=== PATIENT | female | born 1940 | race Hispanic/Latino ===

== ENCOUNTER 2020-11-25 04:52 | Inpatient (IN) | payer MEDICARE ==
[~2020-11-25] VITALS: Ht 152.4 cm; Wt 51.3 kg
[~2020-11-25 04:52] MED LIST: ASA81 MG PO; Z TIROSINT PO; Z.0.B-121000 MCG PO; Z.0.BONIVA150 MG PO; Z.0.DIOVAN160 MG PO; Z.1.VITAMIN D400 UNI PO
[2020-11-25] MEDS ORDERED: SODIUM CHLORIDE 0.9% 500ML 500 ML ONE ×2 (05:28→05:41)
[2020-11-25 05:47] LABS: BASOPHILS # (AUTO) 0.1 (0.0-0.1); BASOPHILS % 0.4 % (0.0-1.0); EOSINOPHILS % 0.2 % (0.0-6.0); HEMATOCRIT 33.9 % (34.2-44.1); HEMOGLOBIN 10.6 g/dL (12.0-16.0); LYMPHOCYTES # (AUTO) 2.2 (1.0-3.2); LYMPHOCYTES % 17.3 % (18.0-39.1); MEAN CORPUSCULAR HEMOGLOBIN 32.6 pg (28-32); MEAN CORPUSCULAR HGB CONC 31.3 g/dL (31-35); MEAN CORPUSCULAR VOLUME 104.3 fL (81-99); MONOCYTES # (AUTO) 0.8 (0.2-0.8); MONOCYTES % 6.6 % (4.4-11.3); NEUTROPHILS # (AUTO) 8.5 (2.1-6.9); NEUTROPHILS % 66.9 % (38.7-80.0); PLATELET COUNT 189 x10e3/uL (140-360); RED BLOOD COUNT 3.25 x10e6/uL (3.6-5.1); RED CELL DISTRIBUTION WIDTH 22.8 % (11.7-14.4)
[2020-11-25] MEDS ORDERED: CEFTRIAXONE 1 GM in SODIUM CHLORIDE 0.9% 50ML 50 ML IV STA (05:47)
[2020-11-25] MEDS ORDERED: DEXAMETHASONE SOD PHOS INJ 4 MG/ML SDV IV ONE (06:00)
[2020-11-25 06:13] LABS: ALBUMIN 2.9 g/dL (3.5-5.0); ALBUMIN/GLOBULIN RATIO 1.1 (0.8-2.0); ANION GAP 17.3 mmol/L (8-16); CALCIUM 7.8 mg/dL (8.4-10.2); CREATININE, SERUM 1.31 mg/dL (0.57-1.11); POTASSIUM 4.3 mmol/L (3.5-5.1)
[2020-11-25] MEDS ORDERED: SODIUM CHLORIDE 0.9% 1000ML 1,000 ML IV STA ×2 (06:26)
[2020-11-25 07:57] LABS: MAGNESIUM 2.1 MG/DL (1.3-2.1); PHOSPHORUS 2.5 MG/DL (2.3-4.7)
[2020-11-25 08:19] LABS: FREE T4 (FREE THYROXINE) 1.17 ng/dL (0.8-1.8); THYROID STIMULATING HORMONE 7.246 uIU/mL (0.350-4.940)
[2020-11-25] MEDS ORDERED: METOPROLOL SUCCINATE 50 MG TAB XL PO ONE (09:00)
[2020-11-25] MEDS ORDERED: PREDNISONE10 MG PO (09:46)
[2020-11-25] MEDS ORDERED: METOPROLOL TART25 MG PO (09:46)
[2020-11-25] MEDS ORDERED: VANCOMYCIN HCL125 MG PO (09:46)
[2020-11-25] MEDS ORDERED: AZITHROMYCIN500 MG PO (09:46)
[2020-11-25] MEDS ORDERED: LEVOTHYROXINE75 MCG PO (09:46)
[2020-11-25] MEDS ORDERED: DILTIAZEM HCL30 MG PO (09:46)
[2020-11-25] MEDS ORDERED: FEROSUL325 MG PO (09:46)
[2020-11-25] MEDS ORDERED: VALACYCLOVIR500 MG PO (09:46)
[2020-11-25] MEDS ORDERED: IMURAN50 MG PO (09:46)
[2020-11-25] MEDS ORDERED: BUSPIRONE HCL5 MG PO (09:46)
[2020-11-25] MEDS: LEVOTHYROXINE SODIUM 88 MCG TAB PO SCH (10:11)
[2020-11-25 10:24] LABS: CLARITY,URINE CLEAR (CLEAR); COLOR,URINE YELLOW (YELLOW); KETONES,URINE NEGATIVE (NEGATIVE); LEUKOCYTE ESTERASE ,URINE NEGATIVE (NEGATIVE); NITRITE,URINE NEGATIVE (NEGATIVE); PROTEIN,URINE DIPSTICK NEGATIVE (NEGATIVE); URINE UROBILINOGEN 0.2 mg/dL (0.2 - 1)
[2020-11-25 10:40] LABS: BACTERIA,URINE FEW /HPF; EPITHELIAL CELLS,URINE FEW /LPF
[2020-11-25 10:55] LABS: INR 0.91; PROTHROMBIN TIME 12.5 seconds (11.9-14.5)
[2020-11-25 10:56] LABS: PARTIAL THROMBOPLASTIN TIME 25.7 seconds (23.8-35.5)
[2020-11-25] MEDS ORDERED: ONDANSETRON HCL INJ 2MG/ML 2ML 2 MG/ML VIAL IV PRN (12:45)
[2020-11-25 14:18] VITALS: BP 140/76
[2020-11-25] MEDS ORDERED: CASIRIVIMAB/IMDEVIMAB 10 ML in SODIUM CHLORIDE 0.9% 100 ML IV ONE (16:00)
[2020-11-25 20:00] VITALS: BP 133/72
[2020-11-25 23:39] VITALS: BP 133/72
[2020-11-26] VITALS (7 sets, daily range): BP systolic 111–137; BP diastolic 63–76
[2020-11-26] MEDS ORDERED: MELATONIN 5 MG TABLET PO PRN (01:15)
[2020-11-26] MEDS ORDERED: ACETAMINOPHEN 325 MG TAB PO PRN (01:15)
[2020-11-26] MEDS ORDERED: ONDANSETRON HCL INJ 2MG/ML 2ML 2 MG/ML VIAL IV PRN (01:15)
[2020-11-26] MEDS ORDERED: DIPHENHYDRAMINE HCL 25 MG CAP PO PRN (01:15)
[2020-11-26] MEDS ORDERED: DEXTROSE 50% SYRINGE 50 ML IV PRN (01:15)
[2020-11-26] MEDS ORDERED: BENZONATATE 100 MG CAP PO PRN (01:15)
[2020-11-26] MEDS ORDERED: ALBUTEROL/IPRATROPIUM 3 ML NEB NEB PRN (01:15)
[2020-11-26] MEDS ORDERED: HYDRALAZINE HCL 20 MG/ML VIAL IV PRN (01:15)
[2020-11-26] MEDS ORDERED: LIDOCAINE 4% PATCH TP PRN (01:15)
[2020-11-26] MEDS ORDERED: DOCUSATE SODIUM 100 MG CAP PO PRN (01:15)
[2020-11-26] MEDS ORDERED: SIMETHICONE 80 MG CHEW PO PRN (01:15)
[2020-11-26] MEDS: PANTOPRAZOLE SOD 40 MG TABEC PO SCH (06:03)
[2020-11-26] MEDS: LEVOTHYROXINE SODIUM 88 MCG TAB PO SCH (06:03)
[2020-11-26 06:24] LABS: BASOPHILS % 0.4 % (0.0-1.0); EOSINOPHILS % 0.1 % (0.0-6.0); HEMATOCRIT 29.1 % (34.2-44.1); LYMPHOCYTES # (AUTO) 0.7 (1.0-3.2); LYMPHOCYTES % 9.2 % (18.0-39.1); MEAN CORPUSCULAR HGB CONC 30.9 g/dL (31-35); MEAN CORPUSCULAR VOLUME 106.6 fL (81-99); MONOCYTES # (AUTO) 0.5 (0.2-0.8); MONOCYTES % 7.5 % (4.4-11.3); NEUTROPHILS # (AUTO) 5.3 (2.1-6.9); NEUTROPHILS % 73.6 % (38.7-80.0); PLATELET COUNT 120 x10e3/uL (140-360); RED BLOOD COUNT 2.73 x10e6/uL (3.6-5.1); RED CELL DISTRIBUTION WIDTH 22.7 % (11.7-14.4)
[2020-11-26 07:03] LABS: ALBUMIN 2.3 g/dL (3.5-5.0); ALBUMIN/GLOBULIN RATIO 1.3 (0.8-2.0); ANION GAP 14.8 mmol/L (8-16); CREATININE, SERUM 0.84 mg/dL (0.57-1.11); POTASSIUM 3.8 mmol/L (3.5-5.1)
[2020-11-26 07:08] LABS: CALCIUM 6.6 mg/dL (8.4-10.2)
[2020-11-26] MEDS: CEFTRIAXONE 1 GM in SODIUM CHLORIDE 0.9% 50ML 50 ML IV SCH (09:00)
[2020-11-26] MEDS: METOPROLOL TARTRATE 25 MG TAB PO SCH (14:45)
[2020-11-26] MEDS: DEXTROSE 5%/0.9% SOD CHL 1,000 ML IV SCH (14:45)
[2020-11-26] MEDS ORDERED: CALCIUM GLUCONATE 10% INJ 9.3 MEQ in SODIUM CHLORIDE 0.9% 100 ML 100 ML IV ONE (16:00)
[2020-11-26] MEDS: BUSPIRONE HCL 5 MG TAB PO SCH (16:55)
[2020-11-26] MEDS: SODIUM BICARBONATE 650 MG TAB PO SCH (16:55)
[2020-11-26] MEDS: FERROUS SULFATE 325 MG TAB PO SCH (16:55)
[2020-11-26] MEDS: ENOXAPARIN SOD INJ 40 MG/0.4 ML SYR SC SCH (16:55)
[2020-11-26] MEDS ORDERED: ENOXAPARIN SOD INJ 40 MG/0.4 ML SYR SC SCH (17:00)
[2020-11-26] MEDS ORDERED: DILTIAZEM HCL 30 MG TAB PO SCH (22:00)
[2020-11-27] VITALS (9 sets, daily range): BP systolic 114–141; BP diastolic 59–82
[2020-11-27] MEDS: METOPROLOL TARTRATE 25 MG TAB PO SCH ×2 (01:57→14:45)
[2020-11-27] MEDS: LEVOTHYROXINE SODIUM 75 MCG TAB PO SCH (05:36)
[2020-11-27] MEDS: LEVOTHYROXINE SODIUM 88 MCG TAB PO SCH (05:38)
[2020-11-27] MEDS: DEXTROSE 5%/0.9% SOD CHL 1,000 ML IV SCH (05:43)
[2020-11-27 06:02] LABS: BASOPHILS % 0.6 % (0.0-1.0); EOSINOPHILS % 0.2 % (0.0-6.0); HEMATOCRIT 28.9 % (34.2-44.1); HEMOGLOBIN 9.1 g/dL (12.0-16.0); LYMPHOCYTES # (AUTO) 0.4 (1.0-3.2); LYMPHOCYTES % 6.9 % (18.0-39.1); MEAN CORPUSCULAR HEMOGLOBIN 32.7 pg (28-32); MEAN CORPUSCULAR HGB CONC 31.5 g/dL (31-35); MONOCYTES # (AUTO) 0.3 (0.2-0.8); MONOCYTES % 6.1 % (4.4-11.3); NEUTROPHILS # (AUTO) 3.9 (2.1-6.9); NEUTROPHILS % 77.9 % (38.7-80.0); PLATELET COUNT 100 x10e3/uL (140-360); RED BLOOD COUNT 2.78 x10e6/uL (3.6-5.1); RED CELL DISTRIBUTION WIDTH 21.9 % (11.7-14.4)
[2020-11-27 06:54] LABS: ANION GAP 11.2 mmol/L (8-16); CALCIUM 7.2 mg/dL (8.4-10.2); CREATININE, SERUM 0.82 mg/dL (0.57-1.11); POTASSIUM 3.2 mmol/L (3.5-5.1)
[2020-11-27] MEDS: PANTOPRAZOLE SOD 40 MG TABEC PO SCH (09:53)
[2020-11-27] MEDS: CEFTRIAXONE 1 GM in SODIUM CHLORIDE 0.9% 50ML 50 ML IV SCH (09:53)
[2020-11-27] MEDS: SODIUM BICARBONATE 650 MG TAB PO SCH ×2 (09:54→16:49)
[2020-11-27] MEDS: AZATHIOPRINE 50 MG TAB PO SCH (09:54)
[2020-11-27] MEDS: ASPIRIN 81 MG ENTERIC COATED PO SCH (09:54)
[2020-11-27] MEDS: VALACYCLOVIR HCL 500 MG TAB PO SCH (09:54)
[2020-11-27] MEDS: PREDNISONE 10 MG TAB PO SCH (09:54)
[2020-11-27] MEDS: BUSPIRONE HCL 5 MG TAB PO SCH ×2 (09:54→16:49)
[2020-11-27] MEDS: FERROUS SULFATE 325 MG TAB PO SCH ×2 (09:54→16:49)
[2020-11-27] MEDS: POTASSIUM CHLORIDE 20 MEQ TAB CR PO PRN (12:45)
[2020-11-27] MEDS ORDERED: KCL 20 MEQ PACKET/ ORAL SOLN PO ONE (12:45)
[2020-11-27] MEDS: ENOXAPARIN SOD INJ 40 MG/0.4 ML SYR SC SCH (16:49)
[2020-11-27] MEDS ORDERED: LOPERAMIDE HCL 2 MG CAP PO ONE (18:30)
[2020-11-28] VITALS (8 sets, daily range): BP systolic 116–145; BP diastolic 62–82
[2020-11-28] MEDS: METOPROLOL TARTRATE 25 MG TAB PO SCH ×2 (02:30→12:51)
[2020-11-28] MEDS: LEVOTHYROXINE SODIUM 75 MCG TAB PO SCH (05:20)
[2020-11-28] MEDS: LEVOTHYROXINE SODIUM 88 MCG TAB PO SCH (05:20)
[2020-11-28] MEDS: AZATHIOPRINE 50 MG TAB PO SCH (09:48)
[2020-11-28] MEDS: PREDNISONE 10 MG TAB PO SCH (09:48)
[2020-11-28] MEDS: BUSPIRONE HCL 5 MG TAB PO SCH ×2 (09:48→16:39)
[2020-11-28] MEDS: VALACYCLOVIR HCL 500 MG TAB PO SCH (09:48)
[2020-11-28] MEDS: PANTOPRAZOLE SOD 40 MG TABEC PO SCH (09:48)
[2020-11-28] MEDS: ASPIRIN 81 MG ENTERIC COATED PO SCH (09:48)
[2020-11-28] MEDS: FERROUS SULFATE 325 MG TAB PO SCH ×2 (09:48→16:39)
[2020-11-28] MEDS: SODIUM BICARBONATE 650 MG TAB PO SCH ×2 (09:48→16:39)
[2020-11-28] MEDS: CEFTRIAXONE 1 GM in SODIUM CHLORIDE 0.9% 50ML 50 ML IV SCH (11:47)
[2020-11-28] MEDS: ENOXAPARIN SOD INJ 40 MG/0.4 ML SYR SC SCH (16:39)
[2020-11-29] VITALS (7 sets, daily range): BP systolic 115–145; BP diastolic 68–88
[2020-11-29] MEDS: METOPROLOL TARTRATE 25 MG TAB PO SCH ×2 (00:48→14:38)
[2020-11-29] MEDS: LEVOTHYROXINE SODIUM 75 MCG TAB PO SCH (05:55)
[2020-11-29] MEDS: LEVOTHYROXINE SODIUM 88 MCG TAB PO SCH (05:55)
[2020-11-29 06:58] LABS: BASOPHILS % 0.7 % (0.0-1.0); HEMATOCRIT 26.3 % (34.2-44.1); HEMOGLOBIN 8.9 g/dL (12.0-16.0); LYMPHOCYTES # (AUTO) 0.6 (1.0-3.2); LYMPHOCYTES % 12.5 % (18.0-39.1); MEAN CORPUSCULAR HEMOGLOBIN 35.2 pg (28-32); MEAN CORPUSCULAR HGB CONC 33.8 g/dL (31-35); MONOCYTES # (AUTO) 0.3 (0.2-0.8); MONOCYTES % 5.9 % (4.4-11.3); NEUTROPHILS # (AUTO) 3.3 (2.1-6.9); NEUTROPHILS % 75.9 % (38.7-80.0); PLATELET COUNT 80 x10e3/uL (140-360); RED BLOOD COUNT 2.53 x10e6/uL (3.6-5.1); RED CELL DISTRIBUTION WIDTH 22.8 % (11.7-14.4)
[2020-11-29 07:23] LABS: ANION GAP 10.4 mmol/L (8-16); CREATININE, SERUM 0.85 mg/dL (0.57-1.11); POTASSIUM 3.4 mmol/L (3.5-5.1)
[2020-11-29] MEDS: AZATHIOPRINE 50 MG TAB PO SCH (09:37)
[2020-11-29] MEDS: FERROUS SULFATE 325 MG TAB PO SCH ×2 (09:37→17:28)
[2020-11-29] MEDS: VALACYCLOVIR HCL 500 MG TAB PO SCH (09:37)
[2020-11-29] MEDS: PREDNISONE 10 MG TAB PO SCH (09:37)
[2020-11-29] MEDS: SODIUM BICARBONATE 650 MG TAB PO SCH ×2 (09:37→17:28)
[2020-11-29] MEDS: ASPIRIN 81 MG ENTERIC COATED PO SCH (09:37)
[2020-11-29] MEDS: BUSPIRONE HCL 5 MG TAB PO SCH ×2 (09:37→17:28)
[2020-11-29] MEDS: CEFTRIAXONE 1 GM in SODIUM CHLORIDE 0.9% 50ML 50 ML IV SCH (09:37)
[2020-11-29] MEDS: PANTOPRAZOLE SOD 40 MG TABEC PO SCH (09:37)
[2020-11-29] MEDS: ENOXAPARIN SOD INJ 40 MG/0.4 ML SYR SC SCH (17:29)
[2020-11-30] VITALS (7 sets, daily range): BP systolic 110–136; BP diastolic 58–68
[2020-11-30] MEDS: METOPROLOL TARTRATE 25 MG TAB PO SCH ×2 (00:22→14:11)
[2020-11-30] MEDS: VANCOMYCIN 250MG/5ML ORAL SOLN PO SCH ×4 (00:22→17:36)
[2020-11-30 05:52] LABS: CHOL/HDL RATIO 3.4 (3.0-3.6)
[2020-11-30] MEDS: LEVOTHYROXINE SODIUM 75 MCG TAB PO SCH (06:05)
[2020-11-30] MEDS: BUSPIRONE HCL 5 MG TAB PO SCH ×2 (08:50→17:36)
[2020-11-30] MEDS: CEFTRIAXONE 1 GM in SODIUM CHLORIDE 0.9% 50ML 50 ML IV SCH (08:50)
[2020-11-30] MEDS: ASPIRIN 81 MG ENTERIC COATED PO SCH (08:50)
[2020-11-30] MEDS: SODIUM BICARBONATE 650 MG TAB PO SCH ×2 (08:50→17:36)
[2020-11-30] MEDS: FERROUS SULFATE 325 MG TAB PO SCH ×2 (08:50→17:36)
[2020-11-30] MEDS: PANTOPRAZOLE SOD 40 MG TABEC PO SCH (08:50)
[2020-11-30] MEDS: AZATHIOPRINE 50 MG TAB PO SCH (08:50)
[2020-11-30] MEDS: VALACYCLOVIR HCL 500 MG TAB PO SCH (08:50)
[2020-11-30] MEDS: PREDNISONE 10 MG TAB PO SCH (11:51)
[2020-11-30] MEDS: ENOXAPARIN SOD INJ 40 MG/0.4 ML SYR SC SCH (17:36)
[2020-12-01] VITALS (8 sets, daily range): BP systolic 114–139; BP diastolic 62–72
[2020-12-01] MEDS: VANCOMYCIN 250MG/5ML ORAL SOLN PO SCH ×4 (00:08→18:00)
[2020-12-01] MEDS: METOPROLOL TARTRATE 25 MG TAB PO SCH ×2 (03:01→15:11)
[2020-12-01] MEDS: LEVOTHYROXINE SODIUM 75 MCG TAB PO SCH (06:58)
[2020-12-01] MEDS: PANTOPRAZOLE SOD 40 MG TABEC PO SCH (06:59)
[2020-12-01] MEDS: ASPIRIN 81 MG ENTERIC COATED PO SCH (09:11)
[2020-12-01] MEDS: PREDNISONE 10 MG TAB PO SCH (09:11)
[2020-12-01] MEDS: FERROUS SULFATE 325 MG TAB PO SCH ×2 (09:11→18:00)
[2020-12-01] MEDS: AZATHIOPRINE 50 MG TAB PO SCH (09:11)
[2020-12-01] MEDS: SODIUM BICARBONATE 650 MG TAB PO SCH ×2 (09:11→18:00)
[2020-12-01] MEDS: BUSPIRONE HCL 5 MG TAB PO SCH ×2 (09:11→18:00)
[2020-12-01] MEDS: VALACYCLOVIR HCL 500 MG TAB PO SCH (09:11)
[2020-12-01] MEDS ORDERED: SODIUM CHLORIDE 0.9% 1000ML 1,000 ML IV ONE (14:00)
[2020-12-01 17:38] LABS: ANION GAP 12.2 mmol/L (8-16); CALCIUM 7.3 mg/dL (8.4-10.2); CREATININE, SERUM 1.17 mg/dL (0.57-1.11); POTASSIUM 4.2 mmol/L (3.5-5.1)
[2020-12-01] MEDS: APIXAB 2.5 MG TABLET PO SCH (18:00)
[2020-12-02] VITALS (8 sets, daily range): BP systolic 119–146; BP diastolic 62–84
[2020-12-02] MEDS: VANCOMYCIN 250MG/5ML ORAL SOLN PO SCH ×4 (00:04→19:06)
[2020-12-02] MEDS: METOPROLOL TARTRATE 25 MG TAB PO SCH ×2 (02:18→14:17)
[2020-12-02] MEDS: LEVOTHYROXINE SODIUM 75 MCG TAB PO SCH (05:29)
[2020-12-02 08:08] LABS: ANION GAP 9.8 mmol/L (8-16); CREATININE, SERUM 0.93 mg/dL (0.57-1.11)
[2020-12-02 08:23] LABS: POTASSIUM 2.8 mmol/L (3.5-5.1)
[2020-12-02 08:24] LABS: CALCIUM 6.7 mg/dL (8.4-10.2)
[2020-12-02] MEDS: POTASSIUM CHLORIDE 20 MEQ TAB CR PO PRN (08:49)
[2020-12-02] MEDS: SODIUM BICARBONATE 650 MG TAB PO SCH ×2 (08:50→16:40)
[2020-12-02] MEDS: ASPIRIN 81 MG ENTERIC COATED PO SCH (08:50)
[2020-12-02] MEDS: APIXAB 2.5 MG TABLET PO SCH ×2 (08:50→16:40)
[2020-12-02] MEDS: FERROUS SULFATE 325 MG TAB PO SCH ×2 (08:50→16:40)
[2020-12-02] MEDS: AZATHIOPRINE 50 MG TAB PO SCH (08:50)
[2020-12-02] MEDS: BUSPIRONE HCL 5 MG TAB PO SCH ×2 (08:50→16:40)
[2020-12-02] MEDS: PREDNISONE 10 MG TAB PO SCH (08:50)
[2020-12-02] MEDS: VALACYCLOVIR HCL 500 MG TAB PO SCH (08:50)
[2020-12-02] MEDS: PANTOPRAZOLE SOD 40 MG TABEC PO SCH (08:50)
[2020-12-02] MEDS ORDERED: POTASSIUM CHLORIDE 20 MEQ TAB CR PO ONE (10:45)
[2020-12-02] MEDS ORDERED: SODIUM CHLORIDE 0.9% 1000ML 1,000 ML IV SCH (11:05)
[2020-12-02] MEDS ORDERED: ONDANSETRON HCL 4 MG ORAL DISINTEGRATING TAB PO PRN (12:30)
[2020-12-03] VITALS: BP 139/75
[2020-12-03] MEDS: METOPROLOL TARTRATE 25 MG TAB PO SCH ×2 (02:45→14:45)
[2020-12-03 04:00] VITALS: BP 132/69
[2020-12-03] MEDS: VANCOMYCIN 250MG/5ML ORAL SOLN PO SCH ×3 (06:13→12:13)
[2020-12-03] MEDS: LEVOTHYROXINE SODIUM 75 MCG TAB PO SCH (06:13)
[2020-12-03 07:28] VITALS: BP 132/69
[2020-12-03 08:12] LABS: BASOPHILS % 0.6 % (0.0-1.0); HEMATOCRIT 29.5 % (34.2-44.1); HEMOGLOBIN 9.3 g/dL (12.0-16.0); LYMPHOCYTES # (AUTO) 0.6 (1.0-3.2); LYMPHOCYTES % 15.7 % (18.0-39.1); MEAN CORPUSCULAR HEMOGLOBIN 33.3 pg (28-32); MEAN CORPUSCULAR HGB CONC 31.5 g/dL (31-35); MEAN CORPUSCULAR VOLUME 105.7 fL (81-99); MONOCYTES # (AUTO) 0.4 (0.2-0.8); MONOCYTES % 10.5 % (4.4-11.3); NEUTROPHILS # (AUTO) 2.3 (2.1-6.9); NEUTROPHILS % 66.6 % (38.7-80.0); PLATELET COUNT 92 x10e3/uL (140-360); RED BLOOD COUNT 2.79 x10e6/uL (3.6-5.1)
[2020-12-03 08:29] LABS: ANION GAP 9.1 mmol/L (8-16); CREATININE, SERUM 0.84 mg/dL (0.57-1.11); POTASSIUM 4.1 mmol/L (3.5-5.1)
[2020-12-03 08:31] LABS: CALCIUM 6.8 mg/dL (8.4-10.2)
[2020-12-03 08:37] VITALS: BP 132/79
[2020-12-03] MEDS: BUSPIRONE HCL 5 MG TAB PO SCH (09:12)
[2020-12-03] MEDS: AZATHIOPRINE 50 MG TAB PO SCH (09:12)
[2020-12-03] MEDS: SODIUM BICARBONATE 650 MG TAB PO SCH (09:12)
[2020-12-03] MEDS: VALACYCLOVIR HCL 500 MG TAB PO SCH (09:12)
[2020-12-03] MEDS: APIXAB 2.5 MG TABLET PO SCH (09:12)
[2020-12-03] MEDS: PREDNISONE 10 MG TAB PO SCH (09:12)
[2020-12-03] MEDS: CALCIUM GLUCONATE 10% INJ 9.3 MEQ in SODIUM CHLORIDE 0.9% 100 ML 100 ML IV STA ×2 (09:12→09:53)
[2020-12-03] MEDS: PANTOPRAZOLE SOD 40 MG TABEC PO SCH (09:12)
[2020-12-03] MEDS: FERROUS SULFATE 325 MG TAB PO SCH (09:12)
[2020-12-03] MEDS: ASPIRIN 81 MG ENTERIC COATED PO SCH (09:12)
[2020-12-03 11:22] LABS: LYMPHOCYTES % (MANUAL) 7 % (19-48); MONOCYTES % (MANUAL) 16 % (3.4-9.0); NEUTROPHILS % (MANUAL) 66 % (40-74)
[2020-12-03 11:23] LABS: PLATELET ESTIMATE SLIGHTLY DECREASED; PLATELET MORPHOLOGY COMMENT NORMAL; RBC MORPHOLOGY COMMENT ABNORMAL; SPHEROCYTES FEW
[2020-12-03 12:40] VITALS: BP 124/70
[2020-12-03] MEDS ORDERED: ELIQUIS2.5 MG PO (14:23)
[2020-12-03] MEDS ORDERED: VANCOCIN HCL250 MG PO (14:26)
[2020-12-03] MEDS ORDERED: CHOLESTYRAMINE 4 GM PACKET PO SCH (17:00)
[2020-12-03] MEDS ORDERED: LACTOBACILLUS ACIDOPHILUS CAPSULE PO SCH (17:00)
== END 2020-12-03 16:15 | disposition home or self-care (01) | DRG 196 ==
LOC: ER 05:56 → ERHOLD 12:54 → MED/SURG2 13:24
PROVIDERS: ADMIT Internal Medicine; ATTEND Internal Medicine
DX: J84.89 Other specified interstitial pulmonary diseases (principal); J18.9 Pneumonia, unspecified organism; A04.72 Enterocolitis due to Clostridium difficile, not specified as recurrent; I13.0 Hypertensive heart and chronic kidney disease with heart failure and stage 1 through stage 4 chronic kidney disease, or unspecified chronic kidney disease; I50.22 Chronic systolic (congestive) heart failure; I47.1 Supraventricular tachycardia; I77.89 Other specified disorders of arteries and arterioles; I12.9 Hypertensive chronic kidney disease with stage 1 through stage 4 chronic kidney disease, or unspecified chronic kidney disease; N18.30 Chronic kidney disease, stage 3 unspecified; I48.0 Paroxysmal atrial fibrillation; Z79.01 Long term (current) use of anticoagulants; I10 Essential (primary) hypertension; I25.10 Atherosclerotic heart disease of native coronary artery without angina pectoris; Z95.1 Presence of aortocoronary bypass graft; E03.9 Hypothyroidism, unspecified; Z86.16 Personal history of COVID-19
CPT/HCPCS: 36415; 71045; 80048; 80053; 80061; 81001; 83605; 83735; 83880; 84100; 84439; 84443; 84484; 85025; 85610; 85730; 87040; 87493; 93005; 93306; 97139; 99251; 99284; J0456; J0610; J0696; J1100; J1650; J7030; J7040; J7042; J7050; J7512; U0002

== ENCOUNTER 2020-12-26 17:19 | Emergency (ER) | payer MEDICARE ==
[~2020-12-26] VITALS: Ht 157.5 cm; Wt 40.8 kg
[~2020-12-26 17:19] MED LIST changes: +AZITHROMYCIN500 MG PO; +BUSPIRONE HCL5 MG PO; +DILTIAZEM HCL30 MG PO; +ELIQUIS2.5 MG PO; +FEROSUL325 MG PO; +IMURAN50 MG PO; +LEVOTHYROXINE75 MCG PO; +METOPROLOL TART25 MG PO; +PREDNISONE10 MG PO; +VALACYCLOVIR500 MG PO; +VANCOCIN HCL250 MG PO; +VANCOMYCIN HCL125 MG PO
[2020-12-26 17:50] LABS: BASOPHILS % 0.3 % (0.0-1.0); HEMATOCRIT 35.2 % (34.2-44.1); HEMOGLOBIN 11.2 g/dL (12.0-16.0); LYMPHOCYTES # (AUTO) 0.5 (1.0-3.2); MEAN CORPUSCULAR HEMOGLOBIN 34.7 pg (28-32); MEAN CORPUSCULAR HGB CONC 31.8 g/dL (31-35); MONOCYTES # (AUTO) 0.2 (0.2-0.8); MONOCYTES % 4.1 % (4.4-11.3); NEUTROPHILS # (AUTO) 4.8 (2.1-6.9); NEUTROPHILS % 83.3 % (38.7-80.0); PLATELET COUNT 167 x10e3/uL (140-360); RED BLOOD COUNT 3.23 x10e6/uL (3.6-5.1); RED CELL DISTRIBUTION WIDTH 17.6 % (11.7-14.4)
[2020-12-26 18:01] LABS: INR 1.07; PARTIAL THROMBOPLASTIN TIME 23.9 seconds (23.8-35.5); PROTHROMBIN TIME 14.3 seconds (11.9-14.5)
[2020-12-26 18:11] LABS: ALBUMIN 3.6 g/dL (3.5-5.0); ALBUMIN/GLOBULIN RATIO 1.4 (0.8-2.0); ANION GAP 15.9 mmol/L (8-16); CREATININE, SERUM 1.78 mg/dL (0.57-1.11); POTASSIUM 3.9 mmol/L (3.5-5.1)
[2020-12-26 18:13] LABS: CREATINE KINASE MB 0.6 ng/mL (0-5.0)
[2020-12-26 18:20] LABS: CLARITY,URINE SL CLOUDY (CLEAR); COLOR,URINE STRAW (YELLOW); LEUKOCYTE ESTERASE ,URINE SMALL (NEGATIVE)
[2020-12-26 18:21] LABS: KETONES,URINE NEGATIVE (NEGATIVE); NITRITE,URINE NEGATIVE (NEGATIVE); PROTEIN,URINE DIPSTICK NEGATIVE (NEGATIVE); URINE UROBILINOGEN 0.2 mg/dL (0.2 - 1)
[2020-12-26 18:25] LABS: PLATELET ESTIMATE ADEQUATE; PLATELET MORPHOLOGY COMMENT NORMAL
[2020-12-26 18:29] LABS: BACTERIA,URINE MANY /HPF
[2020-12-26] MEDS ORDERED: SODIUM CHLORIDE 0.9% 250ML 250 ML IV STA (19:07)
[2020-12-26] MEDS ORDERED: SODIUM CHLORIDE 0.9% 250ML 250 ML ONE (19:23)
[2020-12-26 19:51] VITALS: BP 136/76
== END 2020-12-26 19:57 | disposition home or self-care (01) ==
LOC: ER 17:35
DX: I48.91 Unspecified atrial fibrillation (principal); R42 Dizziness and giddiness; R73.9 Hyperglycemia, unspecified; I10 Essential (primary) hypertension; I50.9 Heart failure, unspecified; Z95.1 Presence of aortocoronary bypass graft; Z20.822 Contact with and (suspected) exposure to COVID-19
CPT/HCPCS: 36415; 71045; 80053; 81001; 82550; 82553; 83880; 84484; 85025; 85610; 85730; 87040; 99284; J7050; U0002

== ENCOUNTER 2021-01-01 07:28 | Inpatient (IN) | payer MEDICARE ==
[~2021-01-01] VITALS: Ht 157.5 cm; Wt 40.8 kg
[2021-01-01] MEDS ORDERED: SODIUM CHLORIDE 0.9% 1000ML 1,000 ML IV STA (07:41)
[2021-01-01] MEDS ORDERED: DILTIAZEM HCL 5 MG/ML 5 ML VIAL IV STA (07:56)
[2021-01-01] MEDS ORDERED: SODIUM CHLORIDE 0.9% 500ML 500 ML IV ONE (08:00)
[2021-01-01] MEDS ORDERED: DILTIAZEM HCL VIAL 5 ML ONE (08:08)
[2021-01-01 08:21] LABS: BASOPHILS # (AUTO) 0.1 (0.0-0.1); BASOPHILS % 0.6 % (0.0-1.0); HEMATOCRIT 34.3 % (34.2-44.1); HEMOGLOBIN 10.9 g/dL (12.0-16.0); LYMPHOCYTES # (AUTO) 0.6 (1.0-3.2); LYMPHOCYTES % 6.8 % (18.0-39.1); MEAN CORPUSCULAR HEMOGLOBIN 34.9 pg (28-32); MEAN CORPUSCULAR HGB CONC 31.8 g/dL (31-35); MEAN CORPUSCULAR VOLUME 109.9 fL (81-99); MONOCYTES # (AUTO) 0.4 (0.2-0.8); MONOCYTES % 5.2 % (4.4-11.3); NEUTROPHILS # (AUTO) 6.6 (2.1-6.9); NEUTROPHILS % 80.7 % (38.7-80.0); PLATELET COUNT 153 x10e3/uL (140-360); RED BLOOD COUNT 3.12 x10e6/uL (3.6-5.1)
[2021-01-01 08:31] LABS: INR 1.06; PROTHROMBIN TIME 14.2 seconds (11.9-14.5)
[2021-01-01 08:32] LABS: PARTIAL THROMBOPLASTIN TIME 26.5 seconds (23.8-35.5)
[2021-01-01 08:41] LABS: ALBUMIN 3.2 g/dL (3.5-5.0); ALBUMIN/GLOBULIN RATIO 1.3 (0.8-2.0); CALCIUM 7.5 mg/dL (8.4-10.2); CREATININE, SERUM 1.36 mg/dL (0.57-1.11)
[2021-01-01] MEDS ORDERED: DILTIAZEM HCL 30 MG TAB PO ONE (08:45)
[2021-01-01 09:01] LABS: CREATINE KINASE MB 0.7 ng/mL (0-5.0); THYROID STIMULATING HORMONE 0.342 uIU/mL (0.350-4.940)
[2021-01-01] MEDS ORDERED: POTASSIUM CHLORIDE 20 MEQ TAB CR PO ONE (09:15)
[2021-01-01] MEDS ORDERED: ONDANSETRON HCL INJ 2MG/ML 2ML 2 MG/ML VIAL IV PRN (09:30)
[2021-01-01 11:34] VITALS: BP 121/63
[2021-01-01 11:47] VITALS: BP 121/63
[2021-01-01] MEDS: METOPROLOL TARTRATE 25 MG TAB PO SCH (12:56)
[2021-01-01 16:00] VITALS: BP 105/60
[2021-01-01] MEDS: BUSPIRONE HCL 5 MG TAB PO SCH (16:46)
[2021-01-01] MEDS: FERROUS SULFATE 325 MG TAB PO SCH (16:46)
[2021-01-01 17:10] LABS: CREATINE KINASE MB 0.7 ng/mL (0-5.0)
[2021-01-01 20:00] VITALS: BP 110/58
[2021-01-01 21:00] VITALS: BP 110/58
[2021-01-02] VITALS: BP 109/65
[2021-01-02] MEDS: METOPROLOL TARTRATE 25 MG TAB PO SCH ×2 (00:41→12:19)
[2021-01-02 04:00] VITALS: BP 117/63
[2021-01-02 05:32] LABS: BASOPHILS % 0.8 % (0.0-1.0); HEMATOCRIT 30.5 % (34.2-44.1); HEMOGLOBIN 9.6 g/dL (12.0-16.0); LYMPHOCYTES # (AUTO) 0.7 (1.0-3.2); LYMPHOCYTES % 12.9 % (18.0-39.1); MEAN CORPUSCULAR HEMOGLOBIN 34.8 pg (28-32); MEAN CORPUSCULAR HGB CONC 31.5 g/dL (31-35); MEAN CORPUSCULAR VOLUME 110.5 fL (81-99); MONOCYTES # (AUTO) 0.4 (0.2-0.8); MONOCYTES % 8.4 % (4.4-11.3); NEUTROPHILS # (AUTO) 3.7 (2.1-6.9); NEUTROPHILS % 71.6 % (38.7-80.0); PLATELET COUNT 128 x10e3/uL (140-360); RED BLOOD COUNT 2.76 x10e6/uL (3.6-5.1)
[2021-01-02] MEDS ORDERED: LEVOTHYROXINE SODIUM 75 MCG TAB PO SCH (06:00)
[2021-01-02] MEDS ORDERED: POTASSIUM CHLORIDE 20 MEQ TAB CR PO ONE (06:00)
[2021-01-02 06:15] LABS: ALBUMIN 2.5 g/dL (3.5-5.0); ALBUMIN/GLOBULIN RATIO 1.2 (0.8-2.0); ANION GAP 13.9 mmol/L (8-16); CALCIUM 7.4 mg/dL (8.4-10.2); CHOL/HDL RATIO 3.2 (3.0-3.6); CREATININE, SERUM 1.24 mg/dL (0.57-1.11); POTASSIUM 3.9 mmol/L (3.5-5.1)
[2021-01-02 06:40] LABS: CREATINE KINASE MB 0.5 ng/mL (0-5.0)
[2021-01-02] MEDS ORDERED: AZATHIOPRINE 50 MG TAB PO SCH (07:00)
[2021-01-02] MEDS ORDERED: APIXAB 2.5 MG TABLET PO SCH (07:00)
[2021-01-02] MEDS ORDERED: PREDNISONE 10 MG TAB PO SCH (07:00)
[2021-01-02 07:35] VITALS: BP 136/69
[2021-01-02] MEDS: BUSPIRONE HCL 5 MG TAB PO SCH (08:20)
[2021-01-02] MEDS: FERROUS SULFATE 325 MG TAB PO SCH (08:20)
[2021-01-02 08:25] VITALS: BP 136/69
[2021-01-02] MEDS ORDERED: VALACYCLOVIR HCL 500 MG TAB PO SCH (09:00)
[2021-01-02] MEDS ORDERED: ASPIRIN 81 MG ENTERIC COATED PO SCH (09:00)
[2021-01-02] MEDS ORDERED: ONDANSETRON HCL 4 MG ORAL DISINTEGRATING TAB PO PRN (11:00)
[2021-01-02 11:28] VITALS: BP 118/66
== END 2021-01-02 13:00 | disposition home or self-care (01) | DRG 309 ==
LOC: ER 07:32 → ERHOLD 09:30 → MED/SURG 10:10
PROVIDERS: ADMIT Internal Medicine; ATTEND Internal Medicine
DX: I47.1 Supraventricular tachycardia (principal); I13.0 Hypertensive heart and chronic kidney disease with heart failure and stage 1 through stage 4 chronic kidney disease, or unspecified chronic kidney disease; J84.9 Interstitial pulmonary disease, unspecified; R07.9 Chest pain, unspecified; I50.9 Heart failure, unspecified; Z95.1 Presence of aortocoronary bypass graft; N28.9 Disorder of kidney and ureter, unspecified; I25.10 Atherosclerotic heart disease of native coronary artery without angina pectoris; I48.0 Paroxysmal atrial fibrillation; I77.89 Other specified disorders of arteries and arterioles; N18.30 Chronic kidney disease, stage 3 unspecified; E03.9 Hypothyroidism, unspecified; F41.9 Anxiety disorder, unspecified; F32.A Depression, unspecified
CPT/HCPCS: 36415; 71045; 80053; 80061; 82550; 82553; 83735; 83880; 84443; 84484; 85025; 85610; 85730; 93005; 99284; J7030; J7512; U0002

== ENCOUNTER 2021-01-23 17:57 | Emergency (ER) | payer MEDICARE ==
[~2021-01-23] VITALS: Ht 157.5 cm; Wt 40.8 kg
[2021-01-23] MEDS ORDERED: SODIUM CHLORIDE 0.9% 1000ML 1,000 ML IV STA ×2 (17:59)
[2021-01-23] MEDS ORDERED: DIGOXIN INJ 0.25 MG/ML 2 ML AMP IV ONE (18:00)
[2021-01-23 21:17] LABS: BASOPHILS % 0.1 % (0.0-1.0); HEMATOCRIT 32.5 % (34.2-44.1); HEMOGLOBIN 10.8 g/dL (12.0-16.0); LYMPHOCYTES # (AUTO) 0.5 (1.0-3.2); LYMPHOCYTES % 7.3 % (18.0-39.1); MEAN CORPUSCULAR HEMOGLOBIN 35.2 pg (28-32); MEAN CORPUSCULAR HGB CONC 33.2 g/dL (31-35); MEAN CORPUSCULAR VOLUME 105.9 fL (81-99); MONOCYTES # (AUTO) 0.5 (0.2-0.8); MONOCYTES % 7.2 % (4.4-11.3); NEUTROPHILS # (AUTO) 5.6 (2.1-6.9); NEUTROPHILS % 82.3 % (38.7-80.0); PLATELET COUNT 129 x10e3/uL (140-360); RED BLOOD COUNT 3.07 x10e6/uL (3.6-5.1)
[2021-01-23 21:32] LABS: ALANINE AMINOTRANSFERASE 22 IU/L (0-55); ALBUMIN 2.8 g/dL (3.5-5.0); ALBUMIN/GLOBULIN RATIO 1.5 (0.8-2.0); ALKALINE PHOSPHATASE 62 IU/L (40-150); BLOOD UREA NITROGEN 45 mg/dL (7-26); BUN/CREATININE RATIO 32 (6-25); CALCIUM 7.1 mg/dL (8.4-10.2); CARBON DIOXIDE 21 mmol/L (22-29); CHLORIDE 111 mmol/L (98-107); CREATINE KINASE 28 IU/L (29-168); CREATININE, SERUM 1.41 mg/dL (0.57-1.11); EST GLOMERULAR FILTRATION RATE 36 ML/MIN (60-); GLUCOSE 98 mg/dL (74-118); SODIUM 144 mmol/L (136-145)
[2021-01-23 21:41] LABS: CREATINE KINASE MB < 1.00 ng/mL (0-4.3)
[2021-01-23] MEDS ORDERED: POTASSIUM CHLORIDE 20 MEQ TAB CR PO STA (21:57)
[2021-01-23 22:30] VITALS: BP 163/83
[2021-01-27] MEDS ORDERED: VITAMIN C1000 MG PO (16:43)
[2021-01-27] MEDS ORDERED: METOPROLOL SUCC25 MG PO (16:43)
[2021-01-27] MEDS ORDERED: VITAMIN B-121000 MC2 PO (16:43)
[2021-01-27] MEDS ORDERED: FUROSEMIDE40 MG PO (16:43)
[2021-01-27] MEDS ORDERED: OYSTER SHELL C1 EA12 PO (16:43)
== END 2021-01-23 22:05 | disposition home or self-care (01) ==
LOC: ER 17:59
DX: E87.6 Hypokalemia (principal); I47.1 Supraventricular tachycardia; I10 Essential (primary) hypertension; I50.9 Heart failure, unspecified; I48.91 Unspecified atrial fibrillation; Z95.1 Presence of aortocoronary bypass graft; R94.31 Abnormal electrocardiogram [ECG] [EKG]
CPT/HCPCS: 36415; 71045; 80053; 82550; 82553; 83880; 84484; 85025; 93005; 99284; J1160; J7030

== ENCOUNTER → 2021-01-31 | Day surgery (SDC) | payer MEDICARE ==
[2021-01-27 08:32] LABS: BASOPHILS # (AUTO) 0.1 (0.0-0.1); BASOPHILS % 0.8 % (0.0-1.0); EOSINOPHILS % 0.1 % (0.0-6.0); HEMATOCRIT 40.1 % (34.2-44.1); HEMOGLOBIN 13.1 g/dL (12.0-16.0); LYMPHOCYTES # (AUTO) 0.9 (1.0-3.2); LYMPHOCYTES % 11.8 % (18.0-39.1); MEAN CORPUSCULAR HEMOGLOBIN 35.1 pg (28-32); MEAN CORPUSCULAR HGB CONC 32.7 g/dL (31-35); MEAN CORPUSCULAR VOLUME 107.5 fL (81-99); MONOCYTES # (AUTO) 0.6 (0.2-0.8); MONOCYTES % 7.8 % (4.4-11.3); NEUTROPHILS # (AUTO) 6.2 (2.1-6.9); NEUTROPHILS % 78.1 % (38.7-80.0); PLATELET COUNT 147 x10e3/uL (140-360); RED BLOOD COUNT 3.73 x10e6/uL (3.6-5.1); RED CELL DISTRIBUTION WIDTH 14.7 % (11.7-14.4)
[2021-01-27 08:58] LABS: ALBUMIN 3.4 g/dL (3.5-5.0); ALBUMIN/GLOBULIN RATIO 1.4 (0.8-2.0); ANION GAP 14.2 mmol/L (8-16); CHOL/HDL RATIO 3.1 (3.0-3.6); CREATININE, SERUM 1.66 mg/dL (0.57-1.11); POTASSIUM 3.2 mmol/L (3.5-5.1)
[2021-01-31] VITALS (7 sets, daily range): BP systolic 113–145; BP diastolic 60–92
[~2021-01-31] VITALS: Ht 157.5 cm; Wt 39.9 kg
[~2021-01-31] MED LIST changes: +ALPRAZOLAM 0.5 MG TAB ONE; +DIPHENHYDRAMINE HCL 25 MG CAP ONE; +FENTANYL CITRATE/PF 100MCG/2 ML INJ ONE; +FUROSEMIDE40 MG PO; +HEPARIN SOD (PORCINE) 1000 UNIT/ML 30ML ONE; +HEPARIN SOD/SOD CHLORIDE 2,000 ML ONE; +IOPAMIDOL 370 MG/ML 200 ML INFUS..BTL INJ ONE; +LIDOCAINE HCL 2% LOCAL 20 ML VIAL ONE; +METOPROLOL SUCC25 MG PO; +MIDAZOLAM HCL 2 MG/2 ML VIAL ONE; +NITROGLYCERIN/D5W 200 MCG/ML 250 ML ONE; +OYSTER SHELL C1 EA12 PO; +SODIUM CHLORIDE 0.9% 1000ML 1,000 ML ONE; +VERAPAMIL HCL 2.5 MG/ML 2 ML VIAL ONE; +VITAMIN B-121000 MC2 PO; +VITAMIN C1000 MG PO
== END | disposition home or self-care (01) ==
LOC: CATH LAB 11:55
PROVIDERS: ATTEND Internal Medicine Interventional Cardiology
DX: I25.708 Atherosclerosis of coronary artery bypass graft(s), unspecified, with other forms of angina pectoris (principal); R94.39 Abnormal result of other cardiovascular function study; I48.91 Unspecified atrial fibrillation; I47.1 Supraventricular tachycardia; D64.9 Anemia, unspecified; R03.0 Elevated blood-pressure reading, without diagnosis of hypertension; E07.9 Disorder of thyroid, unspecified; Z88.2 Allergy status to sulfonamides; Z01.812 Encounter for preprocedural laboratory examination; Z20.822 Contact with and (suspected) exposure to COVID-19; Z79.82 Long term (current) use of aspirin; Z79.02 Long term (current) use of antithrombotics/antiplatelets; Z79.899 Other long term (current) drug therapy; Z95.1 Presence of aortocoronary bypass graft; Z86.16 Personal history of COVID-19; Z82.3 Family history of stroke
CPT/HCPCS: 36415; 76937; 80053; 80061; 83880; 85025; 93455; C1887; J1644; J2001; J7030; Q9967; U0002; 93454; 99152; J2250; J3010

== ENCOUNTER 2021-02-09 19:21 | Emergency (ER) | payer MEDICARE ==
[~2021-02-09] VITALS: Ht 157.5 cm; Wt 39.9 kg
[~2021-02-09 19:21] MED LIST changes: -ALPRAZOLAM 0.5 MG TAB ONE; -DIPHENHYDRAMINE HCL 25 MG CAP ONE; -FENTANYL CITRATE/PF 100MCG/2 ML INJ ONE; -HEPARIN SOD (PORCINE) 1000 UNIT/ML 30ML ONE; -HEPARIN SOD/SOD CHLORIDE 2,000 ML ONE; -IOPAMIDOL 370 MG/ML 200 ML INFUS..BTL INJ ONE; -LIDOCAINE HCL 2% LOCAL 20 ML VIAL ONE; -MIDAZOLAM HCL 2 MG/2 ML VIAL ONE; -NITROGLYCERIN/D5W 200 MCG/ML 250 ML ONE; -SODIUM CHLORIDE 0.9% 1000ML 1,000 ML ONE; -VERAPAMIL HCL 2.5 MG/ML 2 ML VIAL ONE
[2021-02-09 19:45] LABS: BASOPHILS % 0.4 % (0.0-1.0); HEMATOCRIT 39.7 % (34.2-44.1); HEMOGLOBIN 13.3 g/dL (12.0-16.0); LYMPHOCYTES # (AUTO) 0.5 (1.0-3.2); LYMPHOCYTES % 9.7 % (18.0-39.1); MEAN CORPUSCULAR HEMOGLOBIN 35.8 pg (28-32); MEAN CORPUSCULAR HGB CONC 33.5 g/dL (31-35); MONOCYTES # (AUTO) 0.4 (0.2-0.8); MONOCYTES % 7.9 % (4.4-11.3); NEUTROPHILS # (AUTO) 4.4 (2.1-6.9); NEUTROPHILS % 79.1 % (38.7-80.0); PLATELET COUNT 203 x10e3/uL (140-360); RED BLOOD COUNT 3.71 x10e6/uL (3.6-5.1); RED CELL DISTRIBUTION WIDTH 14.6 % (11.7-14.4)
[2021-02-09] MEDS ORDERED: METOPROLOL TARTRATE INJ 1 MG/ML VIAL IV ONE (19:45)
[2021-02-09 20:02] LABS: ALBUMIN 3.8 g/dL (3.5-5.0); ALBUMIN/GLOBULIN RATIO 1.3 (0.8-2.0); ANION GAP 19.6 mmol/L (8-16); CALCIUM 8.6 mg/dL (8.4-10.2); CREATININE, SERUM 1.59 mg/dL (0.57-1.11); POTASSIUM 3.6 mmol/L (3.5-5.1)
[2021-02-09 20:09] LABS: CREATINE KINASE MB 1.1 ng/mL (0-5.0)
[2021-02-09 22:27] VITALS: BP 121/75
== END 2021-02-09 21:35 | disposition home or self-care (01) ==
LOC: ER 19:36
DX: R06.02 Shortness of breath (principal); R07.9 Chest pain, unspecified; I48.91 Unspecified atrial fibrillation; I10 Essential (primary) hypertension; I50.9 Heart failure, unspecified; Z95.1 Presence of aortocoronary bypass graft
CPT/HCPCS: 36415; 71045; 80053; 82550; 82553; 83880; 84484; 85025; 93005; 99283

== ENCOUNTER 2021-02-17 20:48 | Observation (INO) | payer MEDICARE ==
[~2021-02-17] VITALS: Ht 157.5 cm; Wt 39.9 kg
[2021-02-17] MEDS ORDERED: AMIODARONE HCL 150 MG/100 ML BAG IV ONE (21:15)
[2021-02-17] MEDS ORDERED: AMIODARONE 900MG 500 ML IV SCH (21:15)
[2021-02-17] MEDS ORDERED: AMIODARONE HCL 150MG 100 ML ONE (21:21)
[2021-02-17 21:32] LABS: INR 0.98; PROTHROMBIN TIME 13.8 seconds (11.9-14.5)
[2021-02-17 21:33] LABS: PARTIAL THROMBOPLASTIN TIME 23.7 seconds (23.8-35.5)
[2021-02-17 21:36] LABS: BASOPHILS % 0.5 % (0.0-1.0); HEMATOCRIT 40.1 % (34.2-44.1); HEMOGLOBIN 13.2 g/dL (12.0-16.0); LYMPHOCYTES # (AUTO) 0.7 (1.0-3.2); LYMPHOCYTES % 16.6 % (18.0-39.1); MEAN CORPUSCULAR HEMOGLOBIN 35.3 pg (28-32); MEAN CORPUSCULAR HGB CONC 32.9 g/dL (31-35); MEAN CORPUSCULAR VOLUME 107.2 fL (81-99); MONOCYTES # (AUTO) 0.6 (0.2-0.8); MONOCYTES % 12.7 % (4.4-11.3); NEUTROPHILS % 69.5 % (38.7-80.0); PLATELET COUNT 187 x10e3/uL (140-360); RED BLOOD COUNT 3.74 x10e6/uL (3.6-5.1); RED CELL DISTRIBUTION WIDTH 14.6 % (11.7-14.4)
[2021-02-17 21:41] LABS: ALBUMIN 3.6 g/dL (3.5-5.0); ALBUMIN/GLOBULIN RATIO 1.4 (0.8-2.0); ANION GAP 15.5 mmol/L (8-16); CALCIUM 8.1 mg/dL (8.4-10.2); CREATININE, SERUM 1.6 mg/dL (0.57-1.11); POTASSIUM 3.5 mmol/L (3.5-5.1)
[2021-02-17] MEDS ORDERED: ONDANSETRON HCL INJ 2MG/ML 2ML 2 MG/ML VIAL IV PRN (23:15)
[2021-02-18 08:05] VITALS: BP 152/61
[2021-02-18] MEDS ORDERED: POTASSIUM CHLO20 ME1 PO (10:27)
[2021-02-18] MEDS ORDERED: FLECAINIDE ACET50 MG PO (10:27)
[2021-02-18 13:00] VITALS: BP 132/64
[2021-02-18 16:23] LABS: CREATINE KINASE MB 0.9 ng/mL (0-5.0)
[2021-02-18 16:30] VITALS: BP 123/66
[2021-02-18] MEDS ORDERED: ASPIRIN 81 MG ENTERIC COATED PO SCH (16:30)
[2021-02-18] MEDS: FERROUS SULFATE 325 MG TAB PO SCH (17:40)
[2021-02-18] MEDS: BUSPIRONE HCL 5 MG TAB PO SCH (17:40)
[2021-02-18] MEDS: APIXAB 2.5 MG TABLET PO SCH (17:40)
[2021-02-18 18:53] VITALS: BP 135/75
[2021-02-18 20:00] VITALS: BP 123/63
[2021-02-18 20:16] VITALS: BP 123/63
[2021-02-19 00:06] VITALS: BP 126/75
[2021-02-19 05:45] VITALS: BP 122/66
[2021-02-19] MEDS ORDERED: LEVOTHYROXINE SODIUM 75 MCG TAB PO SCH (06:00)
[2021-02-19 06:22] LABS: ANION GAP 13.9 mmol/L (8-16); CALCIUM 8.5 mg/dL (8.4-10.2); CREATININE, SERUM 1.43 mg/dL (0.57-1.11)
[2021-02-19 06:24] LABS: POTASSIUM 2.9 mmol/L (3.5-5.1)
[2021-02-19] MEDS ORDERED: POTASSIUM CHLORIDE 20 MEQ TAB CR PO STA ×2 (06:32→08:23)
[2021-02-19 07:32] LABS: CREATINE KINASE MB 0.6 ng/mL (0-5.0)
[2021-02-19 08:00] VITALS: BP 122/66
[2021-02-19] MEDS ORDERED: VALACYCLOVIR HCL 500 MG TAB PO SCH (09:00)
[2021-02-19] MEDS: BUSPIRONE HCL 5 MG TAB PO SCH (09:00)
[2021-02-19] MEDS ORDERED: METOPROLOL SUCCINATE 25 MG TAB XL PO SCH (09:00)
[2021-02-19] MEDS ORDERED: PREDNISONE 10 MG TAB PO SCH (09:00)
[2021-02-19] MEDS: FERROUS SULFATE 325 MG TAB PO SCH (09:00)
[2021-02-19] MEDS ORDERED: AZATHIOPRINE 50 MG TAB PO SCH (09:00)
[2021-02-19] MEDS: APIXAB 2.5 MG TABLET PO SCH (09:00)
[2021-02-19] MEDS ORDERED: CYANOCOBALAMIN 1,000 MCG TAB PO SCH (09:00)
[2021-02-19] MEDS ORDERED: ASCORBIC ACID 500 MG TAB PO SCH (09:00)
[2021-02-19 09:14] VITALS: BP 132/79
[2021-02-19 12:00] VITALS: BP 120/70
== END 2021-02-19 12:13 | disposition home or self-care (01) ==
LOC: ER 20:59 → INTOOBSV 23:08 → ERHOLD 23:08 → MED/SURG2 02-18 07:42
PROVIDERS: ADMIT Internal Medicine; ATTEND Internal Medicine
DX: I48.0 Paroxysmal atrial fibrillation (principal); Z79.01 Long term (current) use of anticoagulants; I13.0 Hypertensive heart and chronic kidney disease with heart failure and stage 1 through stage 4 chronic kidney disease, or unspecified chronic kidney disease; I50.9 Heart failure, unspecified; N18.30 Chronic kidney disease, stage 3 unspecified; E03.9 Hypothyroidism, unspecified; I77.89 Other specified disorders of arteries and arterioles; F41.9 Anxiety disorder, unspecified; F32.A Depression, unspecified; Z20.822 Contact with and (suspected) exposure to COVID-19; I25.10 Atherosclerotic heart disease of native coronary artery without angina pectoris; Z95.1 Presence of aortocoronary bypass graft
CPT/HCPCS: 36415 ×3; 71045; 80048; 80053; 80061; 82550 ×3; 82553 ×3; 84484 ×3; 85025; 85610; 85730; 93005; 94799; 99284; G0378 ×3; J7500; J7512; U0002

== ENCOUNTER 2021-05-03 15:56 | Inpatient (IN) | payer MEDICARE ==
[~2021-05-03] VITALS: Ht 157.5 cm; Wt 44.5 kg
[~2021-05-03 15:56] MED LIST changes: +FLECAINIDE ACET50 MG PO; +POTASSIUM CHLO20 ME1 PO
[2021-05-03] MEDS ORDERED: SODIUM CHLORIDE 0.9% 1000ML 500 ML IV ONE (16:15)
[2021-05-03] MEDS ORDERED: ACETAMINOPHEN 325 MG TAB PO ONE (16:15)
[2021-05-03 16:28] LABS: BASOPHILS % 0.4 % (0.0-1.0); EOSINOPHILS % 0.2 % (0.0-6.0); HEMOGLOBIN 10.1 g/dL (12.0-16.0); LYMPHOCYTES # (AUTO) 0.3 (1.0-3.2); LYMPHOCYTES % 5.1 % (18.0-39.1); MEAN CORPUSCULAR HEMOGLOBIN 36.7 pg (28-32); MEAN CORPUSCULAR HGB CONC 31.6 g/dL (31-35); MEAN CORPUSCULAR VOLUME 116.4 fL (81-99); MONOCYTES # (AUTO) 0.3 (0.2-0.8); NEUTROPHILS # (AUTO) 4.8 (2.1-6.9); NEUTROPHILS % 87.8 % (38.7-80.0); PLATELET COUNT 204 x10e3/uL (140-360); RED BLOOD COUNT 2.75 x10e6/uL (3.6-5.1); RED CELL DISTRIBUTION WIDTH 18.3 % (11.7-14.4)
[2021-05-03 16:40] LABS: ALBUMIN 2.7 g/dL (3.5-5.0); ALBUMIN/GLOBULIN RATIO 0.9 (0.8-2.0); ANION GAP 16.3 mmol/L (8-16); CALCIUM 8.2 mg/dL (8.4-10.2); CREATININE, SERUM 2.05 mg/dL (0.57-1.11); POTASSIUM 4.3 mmol/L (3.5-5.1)
[2021-05-03] MEDS ORDERED: CEFTRIAXONE 1 GM in SODIUM CHLORIDE 0.9% 50ML 50 ML IV ONE (16:45)
[2021-05-03] MEDS ORDERED: SODIUM CHLORIDE 0.9% 500ML 500 ML ONE (16:53)
[2021-05-03 16:54] LABS: CLARITY,URINE CLEAR (CLEAR); COLOR,URINE YELLOW (YELLOW); LEUKOCYTE ESTERASE ,URINE SMALL (NEGATIVE); NITRITE,URINE NEGATIVE (NEGATIVE)
[2021-05-03 16:55] LABS: KETONES,URINE NEGATIVE (NEGATIVE); PROTEIN,URINE DIPSTICK NEGATIVE (NEGATIVE); URINE UROBILINOGEN 0.2 mg/dL (0.2 - 1)
[2021-05-03 16:59] LABS: BACTERIA,URINE MODERATE /HPF; EPITHELIAL CELLS,URINE RARE /LPF; WBC,URINE (MAN) 0-5 /HPF (0-5)
[2021-05-03 17:00] LABS: AMORPHOUS SEDIMENT,URINE FEW (FEW)
[2021-05-03] MEDS ORDERED: DOXYCYCLINE HY100 M3 PO (18:36)
[2021-05-03] MEDS ORDERED: SODIUM CHLORIDE 0.9% 1000ML 1,000 ML IV ONE (19:00)
[2021-05-03 21:27] VITALS: BP 85/57
[2021-05-03] MEDS: SODIUM CHLORIDE 0.9% 1000ML 1,000 ML IV SCH (22:00)
[2021-05-03 22:02] VITALS: BP 85/57
[2021-05-03] MEDS ORDERED: ONDANSETRON HCL INJ 2MG/ML 2ML 2 MG/ML VIAL IV PRN (22:15)
[2021-05-03] MEDS ORDERED: POLYETHYLENE GLYCOL 3350 17 GM PACK PO PRN (22:15)
[2021-05-03] MEDS ORDERED: HYDRALAZINE HCL 20 MG/ML VIAL IV PRN (22:15)
[2021-05-03 23:04] VITALS: BP 85/57
[2021-05-04] VITALS (8 sets, daily range): BP systolic 102–142; BP diastolic 56–82
[2021-05-04 06:08] LABS: BASOPHILS % 0.5 % (0.0-1.0); EOSINOPHILS # (AUTO) 0.1 (0.0-0.4); EOSINOPHILS % 1.3 % (0.0-6.0); HEMATOCRIT 29.9 % (34.2-44.1); HEMOGLOBIN 9.4 g/dL (12.0-16.0); LYMPHOCYTES # (AUTO) 0.4 (1.0-3.2); LYMPHOCYTES % 9.4 % (18.0-39.1); MEAN CORPUSCULAR HEMOGLOBIN 36.7 pg (28-32); MEAN CORPUSCULAR HGB CONC 31.4 g/dL (31-35); MEAN CORPUSCULAR VOLUME 116.8 fL (81-99); MONOCYTES # (AUTO) 0.3 (0.2-0.8); MONOCYTES % 8.7 % (4.4-11.3); NEUTROPHILS % 79.3 % (38.7-80.0); PLATELET COUNT 155 x10e3/uL (140-360); RED BLOOD COUNT 2.56 x10e6/uL (3.6-5.1); RED CELL DISTRIBUTION WIDTH 18.3 % (11.7-14.4)
[2021-05-04 06:41] LABS: ALBUMIN 2.2 g/dL (3.5-5.0); ALBUMIN/GLOBULIN RATIO 0.9 (0.8-2.0); ANION GAP 13.2 mmol/L (8-16); CREATININE, SERUM 1.54 mg/dL (0.57-1.11); PHOSPHORUS 2.7 MG/DL (2.3-4.7); POTASSIUM 3.2 mmol/L (3.5-5.1)
[2021-05-04 06:48] LABS: CALCIUM 6.9 mg/dL (8.4-10.2)
[2021-05-04 07:18] LABS: CREATINE KINASE MB 0.6 ng/mL (0-5.0)
[2021-05-04] MEDS: SODIUM CHLORIDE 0.9% 1000ML 1,000 ML IV SCH ×2 (07:26→18:00)
[2021-05-04] MEDS: FAMOTIDINE 20 MG TAB PO SCH ×2 (09:01→18:00)
[2021-05-04] MEDS ORDERED: AMIODARONE HCL100 MG PO (09:16)
[2021-05-04] MEDS ORDERED: PAROXETINE HCL20 MG PO (09:16)
[2021-05-04 10:35] LABS: LYMPHOCYTES % (MANUAL) 5 % (19-48); MONOCYTES % (MANUAL) 5 % (3.4-9.0); NEUTROPHILS % (MANUAL) 90 % (40-74); PLATELET ESTIMATE ADEQUATE; PLATELET MORPHOLOGY COMMENT NORMAL; RBC MORPHOLOGY COMMENT NORMAL
[2021-05-04] MEDS ORDERED: ONDANSETRON HCL 4 MG ORAL DISINTEGRATING TAB PO PRN (11:15)
[2021-05-04] MEDS: AMIODARONE HCL 200 MG TAB PO SCH (12:33)
[2021-05-04] MEDS: PREDNISONE 5 MG TAB PO SCH (12:33)
[2021-05-04 12:44] LABS: CREATINE KINASE MB 0.7 ng/mL (0-5.0)
[2021-05-04] MEDS ORDERED: CEFTRIAXONE 1 GM in SODIUM CHLORIDE 0.9% 50ML 50 ML IV SCH (17:30)
[2021-05-04] MEDS: BUSPIRONE HCL 5 MG TAB PO SCH (18:00)
[2021-05-04] MEDS: APIXAB 2.5 MG TABLET PO SCH (18:00)
[2021-05-04] MEDS: FERROUS SULFATE 325 MG TAB PO SCH (18:00)
[2021-05-04] MEDS ORDERED: AZITHROMYCIN 250 MG TAB PO SCH (20:00)
[2021-05-04 20:56] LABS: CREATINE KINASE MB 0.8 ng/mL (0-5.0)
[2021-05-05] VITALS (8 sets, daily range): BP systolic 103–141; BP diastolic 61–74
[2021-05-05] MEDS: SODIUM CHLORIDE 0.9% 1000ML 1,000 ML IV SCH ×3 (01:25→20:57)
[2021-05-05] MEDS: LEVOTHYROXINE SODIUM 75 MCG TAB PO SCH (05:01)
[2021-05-05 05:29] LABS: BASOPHILS % 0.5 % (0.0-1.0); EOSINOPHILS # (AUTO) 0.1 (0.0-0.4); EOSINOPHILS % 1.2 % (0.0-6.0); HEMATOCRIT 28.3 % (34.2-44.1); HEMOGLOBIN 9.1 g/dL (12.0-16.0); LYMPHOCYTES # (AUTO) 0.4 (1.0-3.2); LYMPHOCYTES % 9.4 % (18.0-39.1); MEAN CORPUSCULAR HGB CONC 32.2 g/dL (31-35); MONOCYTES # (AUTO) 0.4 (0.2-0.8); MONOCYTES % 8.1 % (4.4-11.3); NEUTROPHILS # (AUTO) 3.5 (2.1-6.9); NEUTROPHILS % 80.3 % (38.7-80.0); PLATELET COUNT 171 x10e3/uL (140-360); RED BLOOD COUNT 2.46 x10e6/uL (3.6-5.1); RED CELL DISTRIBUTION WIDTH 17.7 % (11.7-14.4)
[2021-05-05 05:53] LABS: ALBUMIN 2.1 g/dL (3.5-5.0); ALBUMIN/GLOBULIN RATIO 0.8 (0.8-2.0); ANION GAP 10.1 mmol/L (8-16); POTASSIUM 3.1 mmol/L (3.5-5.1)
[2021-05-05 06:03] LABS: CALCIUM 6.8 mg/dL (8.4-10.2)
[2021-05-05 06:14] LABS: CREATININE, SERUM 1.33 mg/dL (0.57-1.11)
[2021-05-05 07:42] LABS: BAND NEUTROPHILS % (MANUAL) 3 %; EOSINOPHILS % (MANUAL) 2 % (0-7); LYMPHOCYTES % (MANUAL) 5 % (19-48); MONOCYTES % (MANUAL) 6 % (3.4-9.0); NEUTROPHILS % (MANUAL) 84 % (40-74); PLATELET ESTIMATE ADEQUATE
[2021-05-05 07:43] LABS: ANISOCYTOSIS SLIGHT; PLATELET MORPHOLOGY COMMENT NORMAL; RBC MORPHOLOGY COMMENT NORMAL
[2021-05-05] MEDS: PREDNISONE 5 MG TAB PO SCH (09:00)
[2021-05-05] MEDS: VALACYCLOVIR HCL 500 MG TAB PO SCH (09:00)
[2021-05-05] MEDS: PAROXETINE HCL 20 MG TAB PO SCH (09:45)
[2021-05-05] MEDS: FUROSEMIDE 40 MG TAB PO SCH (09:45)
[2021-05-05] MEDS: AMIODARONE HCL 200 MG TAB PO SCH (09:45)
[2021-05-05] MEDS: ASPIRIN 81 MG ENTERIC COATED PO SCH (09:45)
[2021-05-05] MEDS: AZATHIOPRINE 50 MG TAB PO SCH (09:45)
[2021-05-05] MEDS: FAMOTIDINE 20 MG TAB PO SCH ×2 (09:45→16:45)
[2021-05-05] MEDS: BUSPIRONE HCL 5 MG TAB PO SCH ×2 (09:45→18:33)
[2021-05-05] MEDS: FERROUS SULFATE 325 MG TAB PO SCH ×2 (09:45→18:34)
[2021-05-05] MEDS: POTASSIUM CHLORIDE 20 MEQ TAB CR PO SCH (09:45)
[2021-05-05] MEDS: APIXAB 2.5 MG TABLET PO SCH ×2 (09:45→18:33)
[2021-05-05] MEDS: CYANOCOBALAMIN 1,000 MCG TAB PO SCH (09:46)
[2021-05-05] MEDS: ASCORBIC ACID 500 MG TAB PO SCH (09:46)
[2021-05-05] MEDS: METOPROLOL SUCCINATE 25 MG TAB XL PO SCH (09:46)
[2021-05-05] MEDS: CALCIUM GLUCONATE 10% INJ 4.65 MEQ in SODIUM CHLORIDE 0.9% 50ML 50 ML IV ONE ×2 (12:32→16:46)
[2021-05-05] MEDS: CALCIUM CARBONATE 500 MG CHEWABLE TABS PO SCH (12:32)
[2021-05-05 13:53] LABS: MAGNESIUM 2.1 MG/DL (1.3-2.1); PHOSPHORUS 2.1 MG/DL (2.3-4.7)
[2021-05-05] MEDS: CHOLECALCIFEROL 1,000 UNIT TAB PO SCH (16:45)
[2021-05-05] MEDS: AZITHROMYCIN 250 MG TAB PO SCH (18:34)
[2021-05-05] MEDS: PIPERACILLIN/TAZOBACTAM 3.375 GM in SODIUM CHLORIDE 0.9% 50ML 50 ML IV SCH ×2 (18:34→23:51)
[2021-05-06] VITALS (8 sets, daily range): BP systolic 98–148; BP diastolic 55–82
[2021-05-06] MEDS: LEVOTHYROXINE SODIUM 75 MCG TAB PO SCH (05:42)
[2021-05-06] MEDS: PIPERACILLIN/TAZOBACTAM 3.375 GM in SODIUM CHLORIDE 0.9% 50ML 50 ML IV SCH ×4 (05:42→23:38)
[2021-05-06] MEDS: SODIUM CHLORIDE 0.9% 1000ML 1,000 ML IV SCH ×2 (05:45→17:12)
[2021-05-06 06:42] LABS: BASOPHILS % 0.6 % (0.0-1.0); EOSINOPHILS % 0.6 % (0.0-6.0); HEMATOCRIT 27.8 % (34.2-44.1); LYMPHOCYTES # (AUTO) 0.3 (1.0-3.2); LYMPHOCYTES % 6.2 % (18.0-39.1); MEAN CORPUSCULAR HEMOGLOBIN 36.6 pg (28-32); MEAN CORPUSCULAR HGB CONC 32.4 g/dL (31-35); MONOCYTES # (AUTO) 0.3 (0.2-0.8); MONOCYTES % 6.9 % (4.4-11.3); NEUTROPHILS # (AUTO) 4.1 (2.1-6.9); NEUTROPHILS % 84.9 % (38.7-80.0); PLATELET COUNT 161 x10e3/uL (140-360); RED BLOOD COUNT 2.46 x10e6/uL (3.6-5.1); RED CELL DISTRIBUTION WIDTH 17.7 % (11.7-14.4)
[2021-05-06 07:11] LABS: ALBUMIN/GLOBULIN RATIO 0.8 (0.8-2.0); ANION GAP 13.5 mmol/L (8-16); CALCIUM 7.1 mg/dL (8.4-10.2); CREATININE, SERUM 1.25 mg/dL (0.57-1.11); POTASSIUM 3.5 mmol/L (3.5-5.1)
[2021-05-06] MEDS: FAMOTIDINE 20 MG TAB PO SCH ×2 (08:30→17:11)
[2021-05-06] MEDS: METOPROLOL SUCCINATE 25 MG TAB XL PO SCH (09:00)
[2021-05-06] MEDS: APIXAB 2.5 MG TABLET PO SCH ×2 (09:34→17:11)
[2021-05-06] MEDS: FERROUS SULFATE 325 MG TAB PO SCH ×2 (09:34→17:11)
[2021-05-06] MEDS: AZATHIOPRINE 50 MG TAB PO SCH (09:34)
[2021-05-06] MEDS: POTASSIUM CHLORIDE 20 MEQ TAB CR PO SCH (09:34)
[2021-05-06] MEDS: BUSPIRONE HCL 5 MG TAB PO SCH ×2 (09:34→17:11)
[2021-05-06] MEDS: AMIODARONE HCL 200 MG TAB PO SCH (09:34)
[2021-05-06] MEDS: CYANOCOBALAMIN 1,000 MCG TAB PO SCH (09:35)
[2021-05-06] MEDS: PAROXETINE HCL 20 MG TAB PO SCH (09:35)
[2021-05-06] MEDS: CHOLECALCIFEROL 1,000 UNIT TAB PO SCH (09:35)
[2021-05-06] MEDS: VALACYCLOVIR HCL 500 MG TAB PO SCH (09:35)
[2021-05-06] MEDS: FUROSEMIDE 40 MG TAB PO SCH (09:35)
[2021-05-06] MEDS: CALCIUM CARBONATE 500 MG CHEWABLE TABS PO SCH (09:35)
[2021-05-06] MEDS: PREDNISONE 5 MG TAB PO SCH (09:35)
[2021-05-06] MEDS: ASCORBIC ACID 500 MG TAB PO SCH (09:35)
[2021-05-06] MEDS: ACETAMINOPHEN 325 MG TAB PO PRN (12:00)
[2021-05-06 12:57] LABS: BAND NEUTROPHILS % (MANUAL) 1 %; LYMPHOCYTES % (MANUAL) 9 % (19-48); MONOCYTES % (MANUAL) 6 % (3.4-9.0); NEUTROPHILS % (MANUAL) 84 % (40-74); PLATELET ESTIMATE ADEQUATE; PLATELET MORPHOLOGY COMMENT NORMAL; RBC MORPHOLOGY COMMENT NORMAL
[2021-05-06] MEDS: AZITHROMYCIN 250 MG TAB PO SCH (18:47)
[2021-05-07] VITALS (8 sets, daily range): BP systolic 88–132; BP diastolic 62–76
[2021-05-07] MEDS: SODIUM CHLORIDE 0.9% 1000ML 1,000 ML IV SCH ×3 (02:34→23:09)
[2021-05-07] MEDS: LEVOTHYROXINE SODIUM 75 MCG TAB PO SCH (05:14)
[2021-05-07] MEDS: PIPERACILLIN/TAZOBACTAM 3.375 GM in SODIUM CHLORIDE 0.9% 50ML 50 ML IV SCH ×4 (05:14→23:09)
[2021-05-07 06:28] LABS: BASOPHILS % 0.2 % (0.0-1.0); EOSINOPHILS % 0.7 % (0.0-6.0); HEMATOCRIT 25.2 % (34.2-44.1); HEMOGLOBIN 8.1 g/dL (12.0-16.0); LYMPHOCYTES # (AUTO) 0.2 (1.0-3.2); LYMPHOCYTES % 5.2 % (18.0-39.1); MEAN CORPUSCULAR HEMOGLOBIN 36.3 pg (28-32); MEAN CORPUSCULAR HGB CONC 32.1 g/dL (31-35); MONOCYTES # (AUTO) 0.3 (0.2-0.8); MONOCYTES % 5.7 % (4.4-11.3); NEUTROPHILS % 87.3 % (38.7-80.0); PLATELET COUNT 150 x10e3/uL (140-360); RED BLOOD COUNT 2.23 x10e6/uL (3.6-5.1); RED CELL DISTRIBUTION WIDTH 18.1 % (11.7-14.4)
[2021-05-07 06:50] LABS: ALBUMIN 1.8 g/dL (3.5-5.0); ALBUMIN/GLOBULIN RATIO 0.6 (0.8-2.0); ANION GAP 13.3 mmol/L (8-16); CREATININE, SERUM 1.42 mg/dL (0.57-1.11); POTASSIUM 3.3 mmol/L (3.5-5.1)
[2021-05-07 06:52] LABS: CALCIUM 6.3 mg/dL (8.4-10.2)
[2021-05-07] MEDS: FAMOTIDINE 20 MG TAB PO SCH ×2 (08:00→16:48)
[2021-05-07] MEDS: ASPIRIN 81 MG ENTERIC COATED PO SCH (09:12)
[2021-05-07] MEDS: BUSPIRONE HCL 5 MG TAB PO SCH ×2 (09:12→17:21)
[2021-05-07] MEDS: AZATHIOPRINE 50 MG TAB PO SCH (09:12)
[2021-05-07] MEDS: APIXAB 2.5 MG TABLET PO SCH ×2 (09:12→17:21)
[2021-05-07] MEDS: FERROUS SULFATE 325 MG TAB PO SCH ×2 (09:12→17:21)
[2021-05-07] MEDS: AMIODARONE HCL 200 MG TAB PO SCH (09:12)
[2021-05-07] MEDS: CALCIUM CARBONATE 500 MG CHEWABLE TABS PO SCH (09:13)
[2021-05-07] MEDS: METOPROLOL SUCCINATE 25 MG TAB XL PO SCH (09:13)
[2021-05-07] MEDS: PREDNISONE 5 MG TAB PO SCH (09:13)
[2021-05-07] MEDS: PAROXETINE HCL 20 MG TAB PO SCH (09:13)
[2021-05-07] MEDS: FUROSEMIDE 40 MG TAB PO SCH (09:13)
[2021-05-07] MEDS: POTASSIUM CHLORIDE 20 MEQ TAB CR PO SCH (09:13)
[2021-05-07] MEDS: ASCORBIC ACID 500 MG TAB PO SCH (09:14)
[2021-05-07] MEDS: CYANOCOBALAMIN 1,000 MCG TAB PO SCH (09:14)
[2021-05-07] MEDS: VALACYCLOVIR HCL 500 MG TAB PO SCH (09:14)
[2021-05-07] MEDS: CHOLECALCIFEROL 1,000 UNIT TAB PO SCH (09:14)
[2021-05-07] MEDS ORDERED: METHYLPREDNISOLONE SOD SUCC 125 MG/2ML VIAL IV NR (13:00)
[2021-05-07] MEDS: ALBUTEROL SULF 0.083% NEB SOLN 3 ML NEB NEB PRN (13:25)
[2021-05-07] MEDS ORDERED: POTASSIUM CHLORIDE 20 MEQ TAB CR PO NR ×2 (13:30→15:45)
[2021-05-07] MEDS: ACETAMINOPHEN 325 MG TAB PO PRN (15:30)
[2021-05-07] MEDS: CHOLESTYRAMINE 4 GM PACKET PO PRN (15:36)
[2021-05-07] MEDS: AZITHROMYCIN 250 MG TAB PO SCH (18:01)
[2021-05-07] MEDS ORDERED: POTASSIUM CHLORIDE 20 MEQ TAB CR PO ONE (20:00)
[2021-05-07] MEDS ORDERED: TRIMETHOPRIM/SULFAMETHOXAZOLE 160 MG in DEXTROSE 5% 250ML 250 ML IV SCH (22:00)
[2021-05-08] VITALS (9 sets, daily range): BP systolic 103–138; BP diastolic 60–89
[2021-05-08] MEDS: PIPERACILLIN/TAZOBACTAM 3.375 GM in SODIUM CHLORIDE 0.9% 50ML 50 ML IV SCH ×4 (05:11→23:18)
[2021-05-08] MEDS: LEVOTHYROXINE SODIUM 75 MCG TAB PO SCH (05:27)
[2021-05-08 06:29] LABS: BASOPHILS % 0.2 % (0.0-1.0); HEMOGLOBIN 9.4 g/dL (12.0-16.0); LYMPHOCYTES # (AUTO) 0.7 (1.0-3.2); LYMPHOCYTES % 7.5 % (18.0-39.1); MEAN CORPUSCULAR HEMOGLOBIN 36.9 pg (28-32); MEAN CORPUSCULAR HGB CONC 31.3 g/dL (31-35); MEAN CORPUSCULAR VOLUME 117.6 fL (81-99); MONOCYTES # (AUTO) 0.4 (0.2-0.8); NEUTROPHILS # (AUTO) 8.2 (2.1-6.9); NEUTROPHILS % 87.4 % (38.7-80.0); PLATELET COUNT 222 x10e3/uL (140-360); RED BLOOD COUNT 2.55 x10e6/uL (3.6-5.1); RED CELL DISTRIBUTION WIDTH 18.4 % (11.7-14.4)
[2021-05-08 07:06] LABS: ALBUMIN/GLOBULIN RATIO 0.6 (0.8-2.0); ANION GAP 15.4 mmol/L (8-16); CREATININE, SERUM 1.5 mg/dL (0.57-1.11); POTASSIUM 3.4 mmol/L (3.5-5.1)
[2021-05-08 07:09] LABS: CALCIUM 6.8 mg/dL (8.4-10.2)
[2021-05-08] MEDS: SODIUM CHLORIDE 0.9% 1000ML 1,000 ML IV SCH (10:03)
[2021-05-08] MEDS: FUROSEMIDE 40 MG TAB PO SCH (10:03)
[2021-05-08] MEDS: FAMOTIDINE 20 MG TAB PO SCH ×2 (10:03→17:38)
[2021-05-08] MEDS: PAROXETINE HCL 20 MG TAB PO SCH (10:03)
[2021-05-08] MEDS: AMIODARONE HCL 200 MG TAB PO SCH (10:03)
[2021-05-08] MEDS: SPIRONOLACTONE 25 MG TAB PO SCH (10:03)
[2021-05-08] MEDS: POTASSIUM CHLORIDE 20 MEQ TAB CR PO SCH (10:03)
[2021-05-08] MEDS: BUSPIRONE HCL 5 MG TAB PO SCH ×2 (10:03→17:38)
[2021-05-08] MEDS: APIXAB 2.5 MG TABLET PO SCH (10:03)
[2021-05-08] MEDS: AZATHIOPRINE 50 MG TAB PO SCH (10:03)
[2021-05-08] MEDS: PREDNISONE 5 MG TAB PO SCH (10:03)
[2021-05-08] MEDS: FERROUS SULFATE 325 MG TAB PO SCH ×2 (10:03→17:38)
[2021-05-08] MEDS: CHOLECALCIFEROL 1,000 UNIT TAB PO SCH (10:04)
[2021-05-08] MEDS: ASCORBIC ACID 500 MG TAB PO SCH (10:04)
[2021-05-08] MEDS: CYANOCOBALAMIN 1,000 MCG TAB PO SCH (10:04)
[2021-05-08] MEDS: CALCIUM CARBONATE 500 MG CHEWABLE TABS PO SCH (10:04)
[2021-05-08] MEDS: VALACYCLOVIR HCL 500 MG TAB PO SCH (10:04)
[2021-05-08] MEDS: METOPROLOL SUCCINATE 25 MG TAB XL PO SCH (10:08)
[2021-05-08] MEDS: SODIUM BICARBONATE 650 MG TAB PO SCH ×2 (10:08→17:38)
[2021-05-08 11:32] LABS: LYMPHOCYTES % (MANUAL) 3 % (19-48); MONOCYTES % (MANUAL) 2 % (3.4-9.0); NEUTROPHILS % (MANUAL) 95 % (40-74); PLATELET ESTIMATE ADEQUATE; PLATELET MORPHOLOGY COMMENT NORMAL
[2021-05-08 11:33] LABS: ANISOCYTOSIS SLIGHT; ELLIPTOCYTE, RBC SLIGHT; OVALOCYTES FEW; POIKILOCYTOSIS SLIGHT; RBC MORPHOLOGY COMMENT ABNORMAL
[2021-05-08] MEDS: CHOLESTYRAMINE 4 GM PACKET PO PRN (12:54)
[2021-05-08] MEDS ORDERED: TRIMETHOPRIM/SULFAMETHOXAZOLE 40MG/5ML SUSP PO ONE ×2 (15:15→21:00)
[2021-05-08] MEDS: ALBUTEROL SULF 0.083% NEB SOLN 3 ML NEB NEB PRN (16:30)
[2021-05-08] MEDS: FUROSEMIDE INJ 10 MG/ML 4 ML VIAL IV SCH (17:38)
[2021-05-08] MEDS: AZITHROMYCIN 250 MG TAB PO SCH (17:38)
[2021-05-08] MEDS: HYDROCORTISONE SOD SUCCINATE 100 MG VIAL IV SCH (17:38)
[2021-05-08 17:44] LABS: BASOPHILS % 0.2 % (0.0-1.0); HEMATOCRIT 28.9 % (34.2-44.1); LYMPHOCYTES # (AUTO) 0.2 (1.0-3.2); LYMPHOCYTES % 1.6 % (18.0-39.1); MEAN CORPUSCULAR HEMOGLOBIN 36.1 pg (28-32); MEAN CORPUSCULAR HGB CONC 31.1 g/dL (31-35); MEAN CORPUSCULAR VOLUME 116.1 fL (81-99); MONOCYTES # (AUTO) 0.5 (0.2-0.8); MONOCYTES % 4.1 % (4.4-11.3); NEUTROPHILS # (AUTO) 11.3 (2.1-6.9); PLATELET COUNT 227 x10e3/uL (140-360); RED BLOOD COUNT 2.49 x10e6/uL (3.6-5.1); RED CELL DISTRIBUTION WIDTH 18.8 % (11.7-14.4)
[2021-05-09] VITALS (9 sets, daily range): BP systolic 118–140; BP diastolic 66–80
[2021-05-09] MEDS: SODIUM CHLORIDE 0.9% 1000ML 1,000 ML IV SCH ×3 (04:15→17:09)
[2021-05-09 05:38] LABS: BASOPHILS % 0.2 % (0.0-1.0); HEMATOCRIT 25.4 % (34.2-44.1); HEMOGLOBIN 8.4 g/dL (12.0-16.0); LYMPHOCYTES # (AUTO) 0.1 (1.0-3.2); LYMPHOCYTES % 1.4 % (18.0-39.1); MEAN CORPUSCULAR HEMOGLOBIN 36.4 pg (28-32); MEAN CORPUSCULAR HGB CONC 33.1 g/dL (31-35); MONOCYTES # (AUTO) 0.5 (0.2-0.8); NEUTROPHILS # (AUTO) 9.3 (2.1-6.9); NEUTROPHILS % 91.6 % (38.7-80.0); PLATELET COUNT 204 x10e3/uL (140-360); RED BLOOD COUNT 2.31 x10e6/uL (3.6-5.1); RED CELL DISTRIBUTION WIDTH 18.5 % (11.7-14.4)
[2021-05-09] MEDS: FUROSEMIDE INJ 10 MG/ML 4 ML VIAL IV SCH (05:49)
[2021-05-09] MEDS: HYDROCORTISONE SOD SUCCINATE 100 MG VIAL IV SCH (05:49)
[2021-05-09] MEDS: LEVOTHYROXINE SODIUM 75 MCG TAB PO SCH (05:50)
[2021-05-09] MEDS: PIPERACILLIN/TAZOBACTAM 3.375 GM in SODIUM CHLORIDE 0.9% 50ML 50 ML IV SCH ×3 (06:00→17:10)
[2021-05-09 06:20] LABS: ALBUMIN 1.9 g/dL (3.5-5.0); ALBUMIN/GLOBULIN RATIO 0.6 (0.8-2.0); ANION GAP 13.2 mmol/L (8-16); CREATININE, SERUM 1.49 mg/dL (0.57-1.11); POTASSIUM 3.2 mmol/L (3.5-5.1)
[2021-05-09 06:25] LABS: CALCIUM 6.9 mg/dL (8.4-10.2)
[2021-05-09 06:42] LABS: PHOSPHORUS 1.6 MG/DL (2.3-4.7)
[2021-05-09] MEDS: FAMOTIDINE 20 MG TAB PO SCH ×2 (07:30→17:09)
[2021-05-09 07:53] LABS: ANISOCYTOSIS SLIGHT; BAND NEUTROPHILS % (MANUAL) 2 %; HYPOCHROMASIA SLIGHT; LYMPHOCYTES % (MANUAL) 1 % (19-48); MONOCYTES % (MANUAL) 4 % (3.4-9.0); NEUTROPHILS % (MANUAL) 93 % (40-74); OVALOCYTES FEW; PLATELET ESTIMATE ADEQUATE; PLATELET MORPHOLOGY COMMENT NORMAL; RBC MORPHOLOGY COMMENT ABNORMAL
[2021-05-09] MEDS: METOPROLOL SUCCINATE 25 MG TAB XL PO SCH (08:04)
[2021-05-09] MEDS: CHOLECALCIFEROL 1,000 UNIT TAB PO SCH (09:00)
[2021-05-09] MEDS: FERROUS SULFATE 325 MG TAB PO SCH ×2 (09:00→17:09)
[2021-05-09] MEDS: CYANOCOBALAMIN 1,000 MCG TAB PO SCH (09:00)
[2021-05-09] MEDS: ASCORBIC ACID 500 MG TAB PO SCH (09:00)
[2021-05-09] MEDS: SODIUM BICARBONATE 650 MG TAB PO SCH ×2 (09:00→17:10)
[2021-05-09] MEDS ORDERED: TRIMETHOPRIM/SULFAMETHOXAZOLE 40MG/5ML SUSP PO ONE (09:00)
[2021-05-09] MEDS: BUSPIRONE HCL 5 MG TAB PO SCH ×2 (09:00→17:09)
[2021-05-09] MEDS: PAROXETINE HCL 20 MG TAB PO SCH (09:00)
[2021-05-09] MEDS: AZATHIOPRINE 50 MG TAB PO SCH (09:00)
[2021-05-09] MEDS: CALCIUM CARBONATE 500 MG CHEWABLE TABS PO SCH (09:00)
[2021-05-09] MEDS: SPIRONOLACTONE 25 MG TAB PO SCH (09:00)
[2021-05-09] MEDS ORDERED: POTASSIUM PHOSPHATE 15 MM in SODIUM CHLORIDE 0.9% 250ML 250 ML IV ONE (11:00)
[2021-05-09] MEDS ORDERED: FUROSEMIDE 20 MG TAB PO ONE (11:00)
[2021-05-09] MEDS: AMIODARONE HCL 200 MG TAB PO SCH (12:18)
[2021-05-09] MEDS: VALACYCLOVIR HCL 500 MG TAB PO SCH (12:18)
[2021-05-09] MEDS: ASPIRIN 81 MG ENTERIC COATED PO SCH (12:18)
[2021-05-09] MEDS: POTASSIUM CHLORIDE 20 MEQ TAB CR PO SCH ×2 (12:18→17:09)
[2021-05-09] MEDS ORDERED: DIPHENHYDRAMINE HCL 25 MG CAP PO PRN (14:45)
[2021-05-09] MEDS: AZITHROMYCIN 250 MG TAB PO SCH (17:10)
[2021-05-09] MEDS ORDERED: TRIMETHOPRIM/SULFAMETHOXAZOLE 160-800 MG TAB PO SCH (21:00)
[2021-05-10] VITALS (9 sets, daily range): BP systolic 0–141; BP diastolic 0–86
[2021-05-10] MEDS: PIPERACILLIN/TAZOBACTAM 3.375 GM in SODIUM CHLORIDE 0.9% 50ML 50 ML IV SCH ×4 (00:01→17:52)
[2021-05-10] MEDS ORDERED: FUROSEMIDE INJ 10 MG/ML 4 ML VIAL IV ONE (01:00)
[2021-05-10] MEDS: TRIMETHOPRIM/SULFAMETHOXAZOLE 160-800 MG TAB PO SCH ×2 (02:00→12:48)
[2021-05-10 05:02] LABS: BASOPHILS % 0.2 % (0.0-1.0); HEMATOCRIT 28.6 % (34.2-44.1); HEMOGLOBIN 9.3 g/dL (12.0-16.0); LYMPHOCYTES # (AUTO) 0.2 (1.0-3.2); LYMPHOCYTES % 2.2 % (18.0-39.1); MEAN CORPUSCULAR HEMOGLOBIN 36.3 pg (28-32); MEAN CORPUSCULAR HGB CONC 32.5 g/dL (31-35); MEAN CORPUSCULAR VOLUME 111.7 fL (81-99); MONOCYTES # (AUTO) 0.4 (0.2-0.8); MONOCYTES % 4.4 % (4.4-11.3); NEUTROPHILS # (AUTO) 8.6 (2.1-6.9); NEUTROPHILS % 88.5 % (38.7-80.0); PLATELET COUNT 239 x10e3/uL (140-360); RED BLOOD COUNT 2.56 x10e6/uL (3.6-5.1); RED CELL DISTRIBUTION WIDTH 18.6 % (11.7-14.4)
[2021-05-10 05:49] LABS: ALBUMIN/GLOBULIN RATIO 0.6 (0.8-2.0); ANION GAP 17.2 mmol/L (8-16); CALCIUM 7.5 mg/dL (8.4-10.2); CREATININE, SERUM 1.65 mg/dL (0.57-1.11); POTASSIUM 3.2 mmol/L (3.5-5.1)
[2021-05-10] MEDS: LEVOTHYROXINE SODIUM 75 MCG TAB PO SCH (06:00)
[2021-05-10] MEDS: FERROUS SULFATE 325 MG TAB PO SCH ×2 (07:08→16:56)
[2021-05-10] MEDS: FAMOTIDINE 20 MG TAB PO SCH ×2 (07:08→16:30)
[2021-05-10] MEDS: AMIODARONE HCL 200 MG TAB PO SCH (07:08)
[2021-05-10] MEDS: AZATHIOPRINE 50 MG TAB PO SCH (07:08)
[2021-05-10] MEDS: SPIRONOLACTONE 25 MG TAB PO SCH (07:08)
[2021-05-10] MEDS: BUSPIRONE HCL 5 MG TAB PO SCH ×2 (07:08→16:56)
[2021-05-10] MEDS: POTASSIUM CHLORIDE 20 MEQ TAB CR PO SCH (07:09)
[2021-05-10] MEDS: CYANOCOBALAMIN 1,000 MCG TAB PO SCH (07:09)
[2021-05-10] MEDS: PAROXETINE HCL 20 MG TAB PO SCH (07:09)
[2021-05-10] MEDS: SODIUM BICARBONATE 650 MG TAB PO SCH ×2 (07:09→16:56)
[2021-05-10] MEDS: VALACYCLOVIR HCL 500 MG TAB PO SCH (07:09)
[2021-05-10] MEDS: METOPROLOL SUCCINATE 25 MG TAB XL PO SCH (07:09)
[2021-05-10] MEDS: ASCORBIC ACID 500 MG TAB PO SCH (07:09)
[2021-05-10] MEDS: CALCIUM CARBONATE 500 MG CHEWABLE TABS PO SCH (07:09)
[2021-05-10] MEDS: CHOLECALCIFEROL 1,000 UNIT TAB PO SCH (07:10)
[2021-05-10] MEDS ORDERED: ACETYLCYSTEINE 200 MG/ML 4ML VIAL ONE (08:23)
[2021-05-10] MEDS ORDERED: OXYMETAZOLINE HCL 0.05% NAS 1 SPRAY BTL ONE (08:23)
[2021-05-10] MEDS ORDERED: LIDOCAINE HCL 2% JELLY 5 ML TUBE ONE (08:23)
[2021-05-10] MEDS ORDERED: LIDOCAINE HCL 4% 50 ML BTL ONE (08:24)
[2021-05-10] MEDS ORDERED: CALCITRIOL 0.25 MCG CAP PO SCH (09:00)
[2021-05-10 10:33] LABS: BAND NEUTROPHILS % (MANUAL) 2 %; LYMPHOCYTES % (MANUAL) 4 % (19-48); MONOCYTES % (MANUAL) 8 % (3.4-9.0); NEUTROPHILS % (MANUAL) 86 % (40-74); PLATELET ESTIMATE ADEQUATE; PLATELET MORPHOLOGY COMMENT NORMAL; RBC MORPHOLOGY COMMENT NORMAL
[2021-05-10] MEDS ORDERED: FLUTICASONE PROPIONATE NASAL SPRAY NS PRN (15:30)
[2021-05-10] MEDS ORDERED: IPRATROPIUM BROMIDE 0.03% NASAL SPRAY 30ML PRN (15:30)
[2021-05-10] MEDS ORDERED: LORAZEPAM INJ 2 MG/ML VIAL IV PRN (17:00)
[2021-05-10] MEDS: Morphine 2mg Syringe 2 MG/ML SYR IV PRN ×2 (17:09→19:45)
[2021-05-10] MEDS: AZITHROMYCIN 250 MG TAB PO SCH (17:12)
[2021-05-11] MEDS ORDERED: POTASSIUM CHLORIDE 20 MEQ TAB CR PO SCH (09:00)
== END 2021-05-10 22:35 | disposition expired | DRG 871 ==
LOC: ER 16:00 → ERHOLD 18:57 → MED/SURG2 20:42 → IMCU 05-08 21:39
PROVIDERS: ADMIT Internal Medicine; ATTEND Internal Medicine
PROC: XW03396 Introduction of Ceftolozane/Tazobactam Anti-infective into Peripheral Vein, Percutaneous Approach, New Technology Group 6 (ICD-10-PCS; 2021-05-05)
PROC: 5A0935A Assistance with Respiratory Ventilation, Less than 24 Consecutive Hours, High Flow/Velocity Cannula (ICD-10-PCS; principal; 2021-05-09)
DX: A41.9 Sepsis, unspecified organism (principal); J15.9 Unspecified bacterial pneumonia; I50.23 Acute on chronic systolic (congestive) heart failure; J96.20 Acute and chronic respiratory failure, unspecified whether with hypoxia or hypercapnia; N17.0 Acute kidney failure with tubular necrosis; B59 Pneumocystosis; E87.2 Acidosis; I13.0 Hypertensive heart and chronic kidney disease with heart failure and stage 1 through stage 4 chronic kidney disease, or unspecified chronic kidney disease; Z68.1 Body mass index [BMI] 19.9 or less, adult; J84.9 Interstitial pulmonary disease, unspecified; N17.9 Acute kidney failure, unspecified; D84.821 Immunodeficiency due to drugs; E46 Unspecified protein-calorie malnutrition; R64 Cachexia; M31.7 Microscopic polyangiitis; N18.30 Chronic kidney disease, stage 3 unspecified; R65.20 Severe sepsis without septic shock; I48.0 Paroxysmal atrial fibrillation; Z79.01 Long term (current) use of anticoagulants; I25.10 Atherosclerotic heart disease of native coronary artery without angina pectoris; H91.91 Unspecified hearing loss, right ear; Z95.1 Presence of aortocoronary bypass graft; Z74.09 Other reduced mobility; E55.9 Vitamin D deficiency, unspecified; E83.39 Other disorders of phosphorus metabolism; E83.51 Hypocalcemia; R19.7 Diarrhea, unspecified; E03.9 Hypothyroidism, unspecified; D63.8 Anemia in other chronic diseases classified elsewhere; Z86.16 Personal history of COVID-19; Z66 Do not resuscitate; E87.6 Hypokalemia; F41.9 Anxiety disorder, unspecified; Z51.5 Encounter for palliative care; I87.2 Venous insufficiency (chronic) (peripheral)
CPT/HCPCS: 36415; 71045; 71250; 80053; 81001; 82550; 82553; 83605; 83735; 83880; 83970; 84100; 84484; 85025; 87040; 87045; 87086; 87493; 93306; 93970; 94640; 94799; 96360; 99251; 99284; J0456; J0610; J0696; J1720; J1940; J2001; J2060; J2270; J2543; J2930; J7030; J7040; J7050; J7512; U0002